=== PATIENT | male | born 1995 | race Caucasian/White ===

== ENCOUNTER 2022-07-17 15:05 | Inpatient (IN) | payer MEDICAID, OTHER ==
[~2022-07-17] VITALS: Ht 175.3 cm; Wt 83.5 kg
[2022-07-17] MEDS ORDERED: inSUlin (REGULAR) HUMAN 1 UNIT/0.01 ML (CHARGE PER UNIT) IV ONE (15:15)
[2022-07-17] MEDS ORDERED: NS IV 1000 ML 1,000 ML IV SCH ×3 (15:15→17:30)
[2022-07-17] MEDS ORDERED: fentaNYL INJ 100 MCG/2 ML AMP IVP ONE (15:30)
[2022-07-17 15:47] LABS: BASOPHILS # (AUTO) 0.1 10^3/uL (0.0-0.1); BASOPHILS % (AUTO) 0 % (0-10); EOSINOPHILS % (AUTO) 0 % (0-10); HEMATOCRIT 49 % (40-54); HEMOGLOBIN 15.8 g/dL (13.3-17.7); LYMPHOCYTES # (AUTO) 0.9 10^3/uL (1.0-4.0); LYMPHOCYTES % (AUTO) 3 % (12-44); MEAN CORPUSCULAR HEMOGLOBIN 31 pg (25-34); MEAN CORPUSCULAR HGB CONC 32 g/dL (32-36); MEAN CORPUSCULAR VOLUME 96 fL (80-99); MONOCYTES % (AUTO) 7 % (0-12); NEUTROPHILS # (AUTO) 25.7 10^3/uL (1.8-7.8); NEUTROPHILS % (AUTO) 84 % (42-75); PLATELET COUNT 450 10^3/uL (130-400)
[2022-07-17 15:53] LABS: ALBUMIN 4.3 GM/DL (3.2-4.5); BILIRUBIN,TOTAL 0.2 MG/DL (0.1-1.0); CALCIUM 9.6 MG/DL (8.5-10.1); CREATININE SERUM 2.33 MG/DL (0.60-1.30); POTASSIUM 5.3 MMOL/L (3.6-5.0); TOTAL PROTEIN 9.1 GM/DL (6.4-8.2); WHITE BLOOD COUNT 30.6 10^3/uL (4.3-11.0)
[2022-07-17 15:58] LABS: MAGNESIUM 2.1 MG/DL (1.6-2.4)
--- NOTE | 2022-07-17 16:05 | ED General ---
General Chief Complaint: Back Problems Stated Complaint: BACK PAIN Nursing Triage Note: PT TO ED BY EMS WITH C/O BACK PAIN AND N/V SINCE SUNDAY. PT HAS HX UNCRONTROLLED DM 2. PT REPORTS HE HAS NOT TAKEN ANYTHING FOR PAIN OR NAUSEA. Source of Information: Patient, EMS Exam Limitations: No Limitations History of Present Illness Date Seen by Provider: Jul 17, 2022 Time Seen by Provider: 15:06 Initial Comments This 27-year-old young man presents to the emergency room with 4 days of nausea and vomiting. He developed back pain with the vomiting. He arrives via EMS. He reports having a history of diabetes type 2. Although he states his diabetes is type II, he also reports he has had prior episodes of DKA and uses insulin. He has not taken his insulin for several days. He is a poor historian and states he does not remember when he last took insulin. He also denies having a primary care provider. He has not been seen at this facility in the past. Allergies and Home Medications Allergies Coded Allergies: No Known Drug Allergies (Unverified , 07/17/22) Patient Home Medication List Home Medication List Reviewed: Yes Review of Systems Review of Systems Constitutional: see HPI EENTM: other (Very dry mucous membranes) Respiratory: short of breath Cardiovascular: see HPI (Tachycardia) Gastrointestinal: see HPI Genitourinary: no symptoms reported Musculoskeletal: see HPI Skin: no symptoms reported Psychiatric/Neurological: No Symptoms Reported Hematologic/Lymphatic: No Symptoms Reported Past Pnpiqor-Xsqaxn-Uspeqk Hx Patient Social History Tobacco Use?: No Use of E-Cig and/or Vaping dev: No Substance use?: No Alcohol Use?: No Pt feels they are or have been: No Immunizations Up To Date Influenza Vaccine Up-to-Date: No; Not Current Past Medical History Surgery/Hospitalization HX: DM2, ASBERGERS Surgeries: No (None reported) Respiratory: No Cardiac: No Neurological: No Reproductive Disorders: No Genitourinary: No Gastrointestinal: No Musculoskeletal: No Endocrine: Yes Diabetes, Insulin dep HEENT: No Cancer: No Psychosocial: Yes (Asperger syndrome) Physical Exam-Suspected Sepsis Physical Exam Vital Signs Vital Signs - First Documented 07/17/22 15:07 Temp 35.2 Pulse 134 Resp 19 B/P (MAP) 112/76 (88) Pulse Ox 97 O2 Delivery Room Air Capillary Refill : Less Than 3 Seconds Blood Pressure Mean: 88 Height, Weight, BMI Height: '" Weight: lbs. oz. kg; 25.00 BMI Method: General Appearance: WD/WN, Moderate Distress HEENT: PERRL/EOMI, Other (Very dry mucous membranes) Neck: Normal Inspection Respiratory: Lungs Clear, Normal Breath Sounds, No Accessory Muscle Use Cardiovascular: No Edema, No Murmur, Tachycardia Gastrointestinal: Non Tender, Soft; No Distended Extremity: Normal Inspection, No Pedal Edema Neurologic/Psychiatric: Alert, Oriented x3, No Motor/Sensory Deficits, Normal Mood/Affect, Other (Poor historian) Skin: normal color, warm/dry Focused Exam Lactate Level 07/17/22 16:15: Lactic Acid Level 2.14*H 07/17/22 17:50: Lactic Acid Level 2.57*H 07/17/22 19:42: Lactic Acid Level 2.05*H Lactic Acid Level Laboratory Tests Test 07/17/22 17:50 07/17/22 19:42 Lactic Acid Level 2.57 MMOL/L (0.50-2.00) *H 2.05 MMOL/L (0.50-2.00) *H Progress/Results/Core Measures Suspected Sepsis SIRS Temperature: Pulse: 134 Respiratory Rate: 19 Laboratory Tests 07/17/22 15:09: White Blood Count 30.6*H 07/17/22 17:50: White Blood Count 28.2H Blood Pressure 112 /76 Mean: 88 07/17/22 16:15: Lactic Acid Level 2.14*H 07/17/22 17:50: Lactic Acid Level 2.57*H 07/17/22 19:42: Lactic Acid Level 2.05*H Laboratory Tests 07/17/22 15:09: Creatinine 2.33H, INR Comment 1.4, Platelet Count 450H, Total Bilirubin 0.2 07/17/22 17:50: Creatinine 1.99H, Platelet Count 388 07/17/22 19:42: Creatinine 1.88H Results/Orders Lab Results Laboratory Tests Test 07/17/22 15:09 07/17/22 15:13 07/17/22 15:17 07/17/22 16:15 Range/Units White Blood Count 30.6 *H 4.3-11.0 10^3/uL Red Blood Count 5.14 4.30-5.52 10^6/uL Hemoglobin 15.8 13.3-17.7 g/dL Hematocrit 49 40-54 % Mean Corpuscular Volume 96 80-99 fL Mean Corpuscular Hemoglobin 31 25-34 pg Mean Corpuscular Hemoglobin Concent 32 32-36 g/dL Red Cell Distribution Width 11.9 10.0-14.5 % Platelet Count 450 H 130-400 10^3/uL Mean Platelet Volume 9.0 9.0-12.2 fL Immature Granulocyte % (Auto) 6 % Neutrophils (%) (Auto) 84 H 42-75 % Lymphocytes (%) (Auto) 3 L 12-44 % Monocytes (%) (Auto) 7 0-12 % Eosinophils (%) (Auto) 0 0-10 % Basophils (%) (Auto) 0 0-10 % Neutrophils # (Auto) 25.7 H 1.8-7.8 10^3/uL Lymphocytes # (Auto) 0.9 L 1.0-4.0 10^3/uL Monocytes # (Auto) 2.0 H 0.0-1.0 10^3/uL Eosinophils # (Auto) 0.0 0.0-0.3 10^3/uL Basophils # (Auto) 0.1 0.0-0.1 10^3/uL Immature Granulocyte # (Auto) 1.9 H 0.0-0.1 10^3/uL Neutrophils % (Manual) 83 % Lymphocytes % (Manual) 4 % Monocytes % (Manual) 7 % Eosinophils % (Manual) 1 % Band Neutrophils 5 % Blood Morphology Comment NORMAL Prothrombin Time 17.5 H 12.2-14.7 SEC INR Comment 1.4 0.8-1.4 Activated Partial Thromboplast Time 29 24-35 SEC Sodium Level 134 L 135-145 MMOL/L Potassium Level 5.3 H 3.6-5.0 MMOL/L Chloride Level 100 98-107 MMOL/L Carbon Dioxide Level 5 *L 21-32 MMOL/L Anion Gap 29 H 5-14 MMOL/L Blood Urea Nitrogen 28 H 7-18 MG/DL Creatinine 2.33 H 0.60-1.30 MG/DL Estimat Glomerular Filtration Rate 38 BUN/Creatinine Ratio 12 Glucose Level 553 *H 70-105 MG/DL Calcium Level 9.6 8.5-10.1 MG/DL Corrected Calcium 9.4 8.5-10.1 MG/DL Magnesium Level 2.1 1.6-2.4 MG/DL Total Bilirubin 0.2 0.1-1.0 MG/DL Aspartate Amino Transf (AST/SGOT) 8 5-34 U/L Alanine Aminotransferase (ALT/SGPT) 13 0-55 U/L Alkaline Phosphatase 133 40-136 U/L C-Reactive Protein High Sensitivity 17.43 H 0.00-0.50 MG/DL Total Protein 9.1 H 6.4-8.2 GM/DL Albumin 4.3 3.2-4.5 GM/DL Beta-Hydroxybutyrate (Chem panel) 12.14 H 0.00-0.27 MMOL/L Procalcitonin 0.33 H <0.10 NG/ML Serum Alcohol < 10 <10 MG/DL Glucometer 532 *H 70-110 MG/DL Influenza Type A (RT-PCR) Not Detected Not Detecte Influenza Type B (RT-PCR) Not Detected Not Detecte SARS-CoV-2 RNA (RT-PCR) Not Detected Not Detecte Lactic Acid Level 2.14 *H 0.50-2.00 MMOL/L Test 07/17/22 17:48 07/17/22 17:50 07/17/22 18:46 07/17/22 19:00 Range/Units Glucometer 405 *H 359 H 70-110 MG/DL White Blood Count 28.2 H 4.3-11.0 10^3/uL Red Blood Count 4.94 4.30-5.52 10^6/uL Hemoglobin 15.4 13.3-17.7 g/dL Hematocrit 47 40-54 % Mean Corpuscular Volume 95 80-99 fL Mean Corpuscular Hemoglobin 31 25-34 pg Mean Corpuscular Hemoglobin Concent 33 32-36 g/dL Red Cell Distribution Width 12.0 10.0-14.5 % Platelet Count 388 130-400 10^3/uL Mean Platelet Volume 8.9 L 9.0-12.2 fL Sodium Level 138 135-145 MMOL/L Potassium Level 4.9 3.6-5.0 MMOL/L Chloride Level 107 98-107 MMOL/L Carbon Dioxide Level < 5 *L 21-32 MMOL/L Anion Gap 26 H 5-14 MMOL/L Blood Urea Nitrogen 27 H 7-18 MG/DL Creatinine 1.99 H 0.60-1.30 MG/DL Estimat Glomerular Filtration Rate 46 BUN/Creatinine Ratio 14 Glucose Level 444 *H 70-105 MG/DL Lactic Acid Level 2.57 *H 0.50-2.00 MMOL/L Calcium Level 8.7 8.5-10.1 MG/DL Beta-Hydroxybutyrate (Chem panel) 9.81 H 0.00-0.27 MMOL/L Urine Color YELLOW Urine Clarity CLEAR Urine pH 5.5 5-9 Urine Specific [place] >=1.030 1.016-1.022 Urine Protein 1+ H NEGATIVE Urine Glucose (UA) 3+ H NEGATIVE Urine Ketones 3+ H NEGATIVE Urine Nitrite NEGATIVE NEGATIVE Urine Bilirubin NEGATIVE NEGATIVE Urine Urobilinogen 0.2 < = 1.0 MG/DL Urine Leukocyte Esterase NEGATIVE NEGATIVE Urine RBC (Auto) 1+ H NEGATIVE Urine RBC NONE /HPF Urine WBC NONE /HPF Urine Squamous Epithelial Cells NONE /HPF Urine Crystals NONE /LPF Urine Bacteria TRACE /HPF Urine Casts PRESENT /LPF Urine Hyaline Casts 0-2 H /LPF Urine Mucus NEGATIVE /LPF Urine Culture Indicated NO Test 07/17/22 19:42 07/17/22 20:00 07/17/22 21:04 Range/Units Sodium Level 136 135-145 MMOL/L Potassium Level 4.7 3.6-5.0 MMOL/L Chloride Level 108 H 98-107 MMOL/L Carbon Dioxide Level 5 *L 21-32 MMOL/L Anion Gap 23 H 5-14 MMOL/L Blood Urea Nitrogen 25 H 7-18 MG/DL Creatinine 1.88 H 0.60-1.30 MG/DL Estimat Glomerular Filtration Rate 49 BUN/Creatinine Ratio 13 Glucose Level 443 *H 70-105 MG/DL Lactic Acid Level 2.05 *H 0.50-2.00 MMOL/L Calcium Level 8.5 8.5-10.1 MG/DL Glucometer 388 H 303 H 70-110 MG/DL My Orders Orders - FREDERICK VANN MD Cbc With Automated Diff (07/17/22 15:10) Comprehensive Metabolic Panel (07/17/22 15:10) Ua Culture If Indicated (07/17/22 15:10) Ed Iv/Invasive Line Start (07/17/22 15:10) Ns Iv 1000 Ml (Sodium Chloride 0.9%) (07/17/22 15:15) Alcohol (07/17/22 15:15) Hs C Reactive Protein (07/17/22 15:15) Drug Screen Stat (Urine) (07/17/22 15:15) Magnesium (07/17/22 15:15) Insulin (Regular) Human (Novolin R (Per (07/17/22 15:15) Covid 19 Inhouse Test (07/17/22 15:15) Influenza A And B By Pcr (07/17/22 15:15) Fentanyl Inj (Sublimaze Injection) (07/17/22 15:30) Manual Differential (07/17/22 15:09) Blood Culture (07/17/22 15:57) Sputum Culture (07/17/22 15:57) Protime With Inr (07/17/22 15:57) Partial Thromboplastin Time (07/17/22 15:57) Chest 1 View, Ap/Pa Only (07/17/22 15:57) Vital Signs Adult Sepsis Patie Q15M (07/17/22 15:57) O2 (07/17/22 15:57) Remove Rings In Anticipation O (07/17/22 15:57) Lactic Acid Analyzer (07/17/22 15:57) Ns Iv 1000 Ml (Sodium Chloride 0.9%) (07/17/22 16:00) Procalcitonin (Pct) (07/17/22 15:59) Beta Hydroxybutyrate (07/17/22 16:18) Ceftriaxone 1 Gm Pre-Mix (Rocephin 1 Gm (07/17/22 16:22) Medications Given in ED Current Medications Medications Dose Ordered Sig/Bianca Route Start Time Stop Time Status Last Admin Dose Admin Fentanyl Citrate 50 mcg ONCE ONCE IVP 07/17/22 15:30 07/17/22 15:31 DC 07/17/22 16:06 50 MCG Insulin Human Regular 5 unit ONCE ONCE IV 07/17/22 15:15 07/17/22 15:19 DC 07/17/22 16:05 5 UNIT Vital Signs/I&O 07/17/22 07/17/22 07/17/22 07/17/22 15:07 17:15 17:18 17:20 Temp 35.2 Pulse 134 135 137 Resp 19 16 B/P (MAP) 112/76 (88) 133/82 (99) Pulse Ox 97 100 99 O2 Delivery Room Air Room Air Room Air 07/17/22 07/17/22 07/17/22 07/17/22 17:30 17:40 17:45 18:00 Temp 36.6 Pulse 137 133 133 Resp 37 12 21 B/P (MAP) 120/72 (88) 129/92 (104) Pulse Ox 99 100 99 O2 Delivery Room Air Room Air Room Air Capillary Refill : Less Than 3 Seconds Blood Pressure Mean: 88 Progress Note : Progress Note Patient was treated with 3 L of IV normal saline as well as insulin 5 units IV. Labs suggested DKA. He also demonstrated a left lower lobe pneumonia on x-ray. Antibiotic therapy with Rocephin was started after blood cultures were obtained. Diagnostic Imaging Diagonstic Imaging: Xray Plain Films/CT/US/NM/MRI: chest Comments Chest x-ray viewed by me and report reviewed. See report below NAME: JIMENEZ HARMON [facility] REC#: [id number] PT STATUS: REG ER : 1995 PHYSICIAN: FREDERICK VANN MD ADMIT DATE: 07/17/22/ER Draft Date of Exam:07/17/22 CHEST 1 VIEW, AP/PA ONLY INDICATION: Diabetic patient; pain, nausea, and vomiting. COMPARISON: No priors. FINDINGS: There is airspace opacity in the left base strongly suggestive of pneumonia in the left lower lobe. Right lung and upper lobes are clear. No failure, effusion, or pneumothorax. IMPRESSION: Left lower lobe pneumonia. Dictated on workstation # [id number] Dict: 07/17/22 1623 Trans: 07/17/22 1626 [id number] Interpreted by: LIBAN BAIRES Departure Communication (Admissions) Time/Spoke to Admitting Phy: 16:15 Dr. Rangel Impression Primary Impression: DKA (diabetic ketoacidosis) Qualified Codes: E13.10 - Other specified diabetes mellitus with ketoacidosis without coma Additional Impressions: Left lower lobe pneumonia Qualified Codes: J18.9 - Pneumonia, unspecified organism Sepsis Qualified Codes: A41.9 - Sepsis, unspecified organism Disposition: ADMITTED INPATIENT Condition: Improved Admissions Decision to Admit Reason: Admit from ER (General) Decision to Admit/Date: Jul 17, 2022 Time/Decision to Admit Time: 16:15 FREDERICK VANN MD Jul 17, 2022 16:05
[2022-07-17] MEDS ORDERED: cefTRIAXone 1 GM PRE-MIX 50 ML IV STA (16:22)
--- NOTE | 2022-07-17 16:27 | Diagnostic Imaging Report ---
INDICATION: Diabetic patient; pain, nausea, and vomiting. COMPARISON: No priors. FINDINGS: There is airspace opacity in the left base strongly suggestive of pneumonia in the left lower lobe. Right lung and upper lobes are clear. No failure, effusion, or pneumothorax. IMPRESSION: Left lower lobe pneumonia. Dictated by: Dictated on workstation # [id number]
[2022-07-17 16:38] LABS: BAND NEUTROPHILS 5 %; EOSINOPHILS % (MANUAL) 1 %; LYMPHOCYTES % (MANUAL) 4 %; MONOCYTES % (MANUAL) 7 %; NEUTROPHILS % (MANUAL) 83 %; RBC MORPH NORMAL
[2022-07-17 16:40] LABS: INR 1.4 (0.8-1.4); PROTHROMBIN TIME PATIENT 17.5 SEC (12.2-14.7)
[2022-07-17] MEDS ORDERED: fentaNYL INJ 100 MCG/2 ML AMP IV PRN (17:30)
[2022-07-17] MEDS ORDERED: ONDANSETRON 4 MG/2 ML (SDV) Z0FRAN IV PRN (17:30)
[2022-07-17] MEDS ORDERED: POTASSIUM CL 10MEQ/50ML IVPB 50 ML IV SCH (17:30)
[2022-07-17] MEDS ORDERED: EPINEPHrine 1 MG INJECTION 4 MG in NS (IVPB) 248 ML IV SCH (17:30)
[2022-07-17] MEDS: PANTOPRAZOLE 40 MG (PROTONIX) VIAL IV SCH (17:39)
[2022-07-17] MEDS: AZITHROMYCIN 500 MG/NS 250 ML IVPB IV SCH ×2 (17:39)
[2022-07-17] MEDS: NOREPINEPHRINE 8 MG/250 ML 250 ML IV SCH (17:46)
[2022-07-17] MEDS: VASOPRESSIN INJECTION 20 UNIT in NS (IVPB) 100 ML IV SCH (17:46)
[2022-07-17] MEDS: 1/2 NS IV SOLUTION 1,000 ML IV SCH ×2 (17:54→22:10)
[2022-07-17 17:57] LABS: HEMATOCRIT 47 % (40-54); HEMOGLOBIN 15.4 g/dL (13.3-17.7); MEAN CORPUSCULAR HEMOGLOBIN 31 pg (25-34); MEAN CORPUSCULAR HGB CONC 33 g/dL (32-36); MEAN CORPUSCULAR VOLUME 95 fL (80-99); MEAN PLATELET VOLUME 8.9 fL (9.0-12.2); PLATELET COUNT 388 10^3/uL (130-400); WHITE BLOOD COUNT 28.2 10^3/uL (4.3-11.0)
[2022-07-17] MEDS: POTASSIUM CL 10MEQ/50ML IVPB 50 ML IV SCH (18:00)
[2022-07-17 18:18] LABS: BUN/CREATININE RATIO 14; CALCIUM 8.7 MG/DL (8.5-10.1); CHLORIDE 107 MMOL/L (98-107); CREATININE SERUM 1.99 MG/DL (0.60-1.30); GFR ESTIMATED 46; POTASSIUM 4.9 MMOL/L (3.6-5.0); SODIUM 138 MMOL/L (135-145)
[2022-07-17 18:20] LABS: CARBON DIOXIDE < 5 MMOL/L (21-32); GLUCOSE 444 MG/DL (70-105)
[2022-07-17] MEDS ORDERED: FLU QUADRIvalent (6 months+) 60 mcg/0.5 ml 2022-23 (Fluzone) IM ONE (18:45)
[2022-07-17 19:10] LABS: BILIRUBIN,URINE NEGATIVE (NEGATIVE); CLARITY,URINE CLEAR; COLOR,URINE YELLOW; GLUCOSE, URINE (UA) 3+ (NEGATIVE); KETONES,URINE 3+ (NEGATIVE); LEUKOCYTE ESTERASE ,URINE NEGATIVE (NEGATIVE); NITRITE,URINE NEGATIVE (NEGATIVE); PH,URINE 5.5 (5-9); PROTEIN,URINE 1+ (NEGATIVE)
[2022-07-17 19:24] LABS: BACTERIA,URINE TRACE /HPF; HYALINE CASTS, URINE 0-2 /LPF
[2022-07-17 20:11] LABS: CALCIUM 8.5 MG/DL (8.5-10.1); CREATININE SERUM 1.88 MG/DL (0.60-1.30); POTASSIUM 4.7 MMOL/L (3.6-5.0)
[2022-07-18] MEDS: D5 1/2 NS 1000 ML IV SOLUTION 1,000 ML IV SCH ×3 (00:23→09:29)
[2022-07-18] MEDS: 1/2 NS IV SOLUTION 1,000 ML IV SCH ×6 (00:43→21:16)
[2022-07-18] MEDS: VASOPRESSIN INJECTION 20 UNIT in NS (IVPB) 100 ML IV SCH ×2 (00:44→12:55)
[2022-07-18 01:43] LABS: CALCIUM 8.9 MG/DL (8.5-10.1); CREATININE SERUM 1.6 MG/DL (0.60-1.30); POTASSIUM 3.5 MMOL/L (3.6-5.0)
[2022-07-18] MEDS: POTASSIUM CL 10MEQ/50ML IVPB 50 ML IV SCH ×6 (04:16→12:55)
[2022-07-18 05:52] LABS: BASOPHILS # (AUTO) 0.1 10^3/uL (0.0-0.1); BASOPHILS % (AUTO) 0 % (0-10); EOSINOPHILS % (AUTO) 0 % (0-10); HEMATOCRIT 40 % (40-54); HEMOGLOBIN 13.5 g/dL (13.3-17.7); LYMPHOCYTES # (AUTO) 1.1 10^3/uL (1.0-4.0); LYMPHOCYTES % (AUTO) 5 % (12-44); MEAN CORPUSCULAR HEMOGLOBIN 31 pg (25-34); MEAN CORPUSCULAR HGB CONC 34 g/dL (32-36); MEAN CORPUSCULAR VOLUME 89 fL (80-99); MEAN PLATELET VOLUME 8.8 fL (9.0-12.2); MONOCYTES # (AUTO) 1.8 10^3/uL (0.0-1.0); MONOCYTES % (AUTO) 8 % (0-12); NEUTROPHILS # (AUTO) 18.1 10^3/uL (1.8-7.8); NEUTROPHILS % (AUTO) 83 % (42-75); PLATELET COUNT 326 10^3/uL (130-400); WHITE BLOOD COUNT 21.9 10^3/uL (4.3-11.0)
[2022-07-18 06:03] LABS: CALCIUM 8.8 MG/DL (8.5-10.1); CREATININE SERUM 1.36 MG/DL (0.60-1.30); POTASSIUM 3.1 MMOL/L (3.6-5.0)
[2022-07-18 08:44] LABS: AMPHETAMINE SCREEN, URINE NEGATIVE (NEGATIVE); BARBITURATE SCREEN URINE NEGATIVE (NEGATIVE); BENZODIAZEPINES SCREEN URINE NEGATIVE (NEGATIVE); CANNABINOID SCREEN, URINE NEGATIVE (NEGATIVE); COCAINE SCREEN URINE NEGATIVE (NEGATIVE); METHADONE STAT NEGATIVE (NEGATIVE); OPIATE SCREEN URINE NEGATIVE (NEGATIVE); OXYCODONE STAT NEGATIVE (NEGATIVE); PROPOXYPHENE STAT NEGATIVE (NEGATIVE); TRICYCLIC ANTIDEPRESSANTS SCRE NEGATIVE (NEGATIVE)
--- NOTE | 2022-07-18 09:04 | History & Physical-Hospitalist ---
History of Present Illness HPI/Chief Complaint Pt is a 27yoCCM with a PMH of IDDM (presumably Type I) who presented to the ER due to nausea and vomiting. He was diagnosed with DM 5-10 years ago and is unsure what type he has but presumably is a Type I diabetic. His last episode of DKA was 3 years ago. He was seeing a free clinic [place] but recently moved to [place] and was unable to get insulin there anymore. He has been out of insulin for months because of this. He is unsure of his last a1c. He was taking between 20-30 units of insulin throughout the day when he had it. He was found to be in DKA and admitted to the ICU on an insulin gtt. CXR was also concerning for PNA and he was started on abx. This morning he reports feeling much better and is asking about how to get on [place] medicaid. Source: patient Date Seen 07/18/22 Time Seen by a Provider: 09:01 Attending Physician No,Local Physician PCP Admitting Physician: Celeste Rangel MD Attending Physician: Celeste Rangel MD Referring Physician Date of Admission Jul 17, 2022 at 16:15 Home Medications & Allergies Home Medications Reviewed patient Home Medication Reconciliation performed by pharmacy medication reconciliations heavy line technician and/or nursing. Patients Allergies have been reviewed. Allergies Allergies Coded Allergies No Known Drug Allergies (Vqnqwpnqvy25/28/22) Past Yffytmk-Vzatoc-Szspnj Hx Patient Social History Marrital Status: single Tobacco Use?: No Smoking Status: Never a Smoker Use of E-Cig and/or Vaping dev: No Substance use?: No Alcohol Use?: No Pt feels they are or have been: No Current Status Advance Directives: No Communicates: Verbally Primary Language: Mozambican Preferred Spoken Language: Mozambican Is interpretation needed?: No Sensory deficits: Vision impairment Implanted or Applied Medical D: None Past Medical History Diabetes, Insulin dep Family Medical History Reviewed Nursing Family Hx Diabetes Review of Systems Constitutional: No chills, No fever; malaise EENTM: no symptoms reported Respiratory: cough Cardiovascular: no symptoms reported Gastrointestinal: nausea, vomiting Genitourinary: no symptoms reported Musculoskeletal: back pain Skin: no symptoms reported Psychiatric/Neurological: No Symptoms Reported Physical Exam Physical Exam Vital Signs Vital Signs - First Documented 07/17/22 07/17/22 15:07 19:38 Temp 35.2 Pulse 134 Resp 19 B/P (MAP) 112/76 (88) Pulse Ox 97 O2 Delivery Room Air O2 Flow Rate 10.00 Capillary Refill : Less Than 3 Seconds Height, Weight, BMI Height: '" Weight: lbs. oz. kg; 26.06 BMI Method: General Appearance: No Apparent Distress, WD/WN HEENT: PERRL/EOMI, Moist Mucous Membranes Neck: Normal Inspection, Supple Respiratory: Lungs Clear, No Accessory Muscle Use, No Respiratory Distress Cardiovascular: Regular Rate, Rhythm, No JVD, No Murmur Gastrointestinal: Normal Bowel Sounds, Non Tender, Soft Extremity: Normal Capillary Refill, No Calf Tenderness, No Pedal Edema Neurologic/Psychiatric: Alert, Oriented x3, Normal Mood/Affect Skin: Normal Color, Warm/Dry Results Results/Procedures Labs Laboratory Tests 07/17/22 15:09 07/17/22 17:50 07/17/22 19:42 07/18/22 01:10 07/18/22 05:05 07/18/22 09:18 Patient resulted labs reviewed. Imaging: Reviewed Imaging Report Imaging [facility], [place], [place] NAME: JIMENEZ HARMON [facility] REC#: [id number] PT STATUS: ADM IN : 1995 PHYSICIAN: FREDERICK VANN MD ADMIT DATE: 07/17/22/ICU Signed Date of Exam:07/17/22 CHEST 1 VIEW, AP/PA ONLY INDICATION: Diabetic patient; pain, nausea, and vomiting. COMPARISON: No priors. FINDINGS: There is airspace opacity in the left base strongly suggestive of pneumonia in the left lower lobe. Right lung and upper lobes are clear. No failure, effusion, or pneumothorax. IMPRESSION: Left lower lobe pneumonia. Dictated by: Dictated on workstation # [id number] Dict: 07/17/22 1623 Trans: 07/18/22804 [id number] Interpreted by: LIBAN BAIRES Electronically signed by: LIBAN BAIRES 07/18/22 0805 Assessment/Plan Admission Diagnosis DKA Admission Status: Inpatient Order (span 2 midnights) Reason for Inpatient Admission: see below Assessment and Plan DKA Hypokalemia severe acidosis with undetectable bicarb on arrival Insulin gtt Gap now closed and BS improved Attempt to switch to bolus insulin A1c pending BMP this afternoon SW consulted for assistance with medicaid application Replace potassium per protocol Sepsis due to Pneumonia Continue on IV abx Await cultures Doing better, WBC trending down DVT ppx: Lovenox Diagnosis/Problems Diagnosis/Problems (1) DKA (diabetic ketoacidosis) Status: Acute Qualifiers: Diabetes mellitus type: other specified (including ALEX) Diabetes mellitus complication detail: without coma Qualified Codes: E13.10 - Other specified diabetes mellitus with ketoacidosis without coma (2) Sepsis Status: Acute Qualifiers: Sepsis type: sepsis due to unspecified organism Sepsis acute organ dysfunction status: unspecified Qualified Codes: A41.9 - Sepsis, unspecified organism (3) Left lower lobe pneumonia Status: Acute Qualifiers: Pneumonia type: due to unspecified organism Qualified Codes: J18.9 - Pneumonia, unspecified organism CELESTE RANGEL MD Jul 18, 2022 09:04
[2022-07-18] MEDS: PANTOPRAZOLE 40 MG (PROTONIX) VIAL IV SCH (09:28)
[2022-07-18] MEDS: NOREPINEPHRINE 8 MG/250 ML 250 ML IV SCH (09:29)
[2022-07-18 09:43] LABS: CALCIUM 8.8 MG/DL (8.5-10.1); CREATININE SERUM 1.17 MG/DL (0.60-1.30)
[2022-07-18] MEDS: inSUlin ASPART (NovoLOG) 1 UNIT/0.01 ML (CHARGE PER UNIT) SC SCH ×3 (11:20→21:08)
[2022-07-18] MEDS: cefTRIAXone 1 GM PRE-MIX 50 ML IV SCH (12:55)
[2022-07-18] MEDS: ENOXAPARIN 40 MG/0.4 ML (LOVENOX) SYR SQ SCH (12:55)
[2022-07-18] MEDS: AZITHROMYCIN 500 MG/NS 250 ML IVPB IV SCH ×2 (17:51)
[2022-07-18 20:28] LABS: CALCIUM 8.9 MG/DL (8.5-10.1)
[2022-07-18 20:32] LABS: CREATININE SERUM 1.12 MG/DL (0.60-1.30)
[2022-07-18 20:59] LABS: POTASSIUM 3.4 MMOL/L (3.6-5.0)
[2022-07-19] MEDS: 1/2 NS IV SOLUTION 1,000 ML IV SCH ×2 (01:28→06:13)
[2022-07-19] MEDS: VASOPRESSIN INJECTION 20 UNIT in NS (IVPB) 100 ML IV SCH ×2 (03:16→15:15)
[2022-07-19] MEDS: NOREPINEPHRINE 8 MG/250 ML 250 ML IV SCH (03:16)
[2022-07-19 05:33] LABS: BASOPHILS # (AUTO) 0.1 10^3/uL (0.0-0.1); BASOPHILS % (AUTO) 0 % (0-10); EOSINOPHILS % (AUTO) 0 % (0-10); HEMATOCRIT 39 % (40-54); HEMOGLOBIN 13.5 g/dL (13.3-17.7); LYMPHOCYTES # (AUTO) 2.3 10^3/uL (1.0-4.0); LYMPHOCYTES % (AUTO) 19 % (12-44); MEAN CORPUSCULAR HEMOGLOBIN 31 pg (25-34); MEAN CORPUSCULAR HGB CONC 35 g/dL (32-36); MEAN CORPUSCULAR VOLUME 88 fL (80-99); MEAN PLATELET VOLUME 8.7 fL (9.0-12.2); MONOCYTES # (AUTO) 0.7 10^3/uL (0.0-1.0); MONOCYTES % (AUTO) 6 % (0-12); NEUTROPHILS # (AUTO) 9.1 10^3/uL (1.8-7.8); NEUTROPHILS % (AUTO) 74 % (42-75); PLATELET COUNT 291 10^3/uL (130-400); WHITE BLOOD COUNT 12.3 10^3/uL (4.3-11.0)
[2022-07-19 05:49] LABS: CALCIUM 8.8 MG/DL (8.5-10.1); CREATININE SERUM 0.86 MG/DL (0.60-1.30); POTASSIUM 3.5 MMOL/L (3.6-5.0)
[2022-07-19] MEDS: inSUlin ASPART (NovoLOG) 1 UNIT/0.01 ML (CHARGE PER UNIT) SC SCH ×2 (06:22→11:00)
[2022-07-19] MEDS: PANTOPRAZOLE 40 MG (PROTONIX) VIAL IV SCH (07:57)
--- NOTE | 2022-07-19 08:31 | Discharge Summary ---
Diagnosis/Chief Complaint Date of Admission Jul 17, 2022 at 16:15 Date of Discharge Admission Diagnosis DKA Primary Care No,Local Physician Discharge Diagnosis (1) DKA (diabetic ketoacidosis) Status: Acute (2) Sepsis Status: Acute (3) Left lower lobe pneumonia Status: Acute Discharge Summary Discharge Physical Exam Allergies: Coded Allergies: No Known Drug Allergies (Unverified , 07/17/22) Vitals & I&Os Vital Signs Date Time Temp Pulse Resp B/P (MAP) Pulse Ox O2 Delivery O2 Flow Rate FiO2 07/19/22 08:03 36.7 07/19/22 06:00 80 17 107/63 (78) 98 Room Air 07/17/22 19:38 10.00 Hospital Course Labs (last 24 hrs) Laboratory Tests 07/18/22 08:57: Glucometer 180H 07/18/22 09:18: Sodium Level 137, Potassium Level 3.0L, Chloride Level 113H, Carbon Dioxide Level 15L, Anion Gap 9, Blood Urea Nitrogen 12, Creatinine 1.17, Estimat Glomerular Filtration Rate 87, BUN/Creatinine Ratio 10, Glucose Level 179H, Calcium Level 8.8 07/18/22 10:04: Glucometer 190H 07/18/22 11:11: Glucometer 131H 07/18/22 13:04: Glucometer 218H 07/18/22 16:42: Glucometer 221H 07/18/22 20:06: Sodium Level 134L, Potassium Level 3.4L, Chloride Level 108H, Carbon Dioxide Level 14L, Anion Gap 12, Blood Urea Nitrogen 11, Creatinine 1.12, Estimat Glomerular Filtration Rate 92, BUN/Creatinine Ratio 10, Glucose Level 307H, Calcium Level 8.9 07/18/22 20:47: Glucometer 250H 07/19/22 05:05: White Blood Count 12.3H, Red Blood Count 4.37, Hemoglobin 13.5, Hematocrit 39L, Mean Corpuscular Volume 88, Mean Corpuscular Hemoglobin 31, Mean Corpuscular Hemoglobin Concent 35, Red Cell Distribution Width 12.1, Platelet Count 291, Mean Platelet Volume 8.7L, Immature Granulocyte % (Auto) 2, Neutrophils (%) (Auto) 74, Lymphocytes (%) (Auto) 19, Monocytes (%) (Auto) 6, Eosinophils (%) (Auto) 0, Basophils (%) (Auto) 0, Neutrophils # (Auto) 9.1H, Lymphocytes # (Auto) 2.3, Monocytes # (Auto) 0.7, Eosinophils # (Auto) 0.0, Basophils # (Auto) 0.1, Immature Granulocyte # (Auto) 0.2H, Sodium Level 139, Potassium Level 3.5L, Chloride Level 109H, Carbon Dioxide Level 15L, Anion Gap 15H, Blood Urea Nitrogen 11, Creatinine 0.86, Estimat Glomerular Filtration Rate 121, BUN/Creatinine Ratio 13, Glucose Level 262H, Calcium Level 8.8 Microbiology 07/17/22 MRSA Screen - Final, Complete MRSA not isolated 07/17/22 Blood Culture - Preliminary, Resulted No growth Patient resulted labs reviewed. Pending Labs Laboratory Tests 07/19/22 05:05: White Blood Count 12.3, Red Blood Count 4.37, Hemoglobin 13.5, Hematocrit 39, Mean Corpuscular Volume 88, Mean Corpuscular Hemoglobin 31, Mean Corpuscular Hemoglobin Concent 35, Red Cell Distribution Width 12.1, Platelet Count 291, Mean Platelet Volume 8.7, Immature Granulocyte % (Auto) 2, Neutrophils (%) (Auto) 74, Lymphocytes (%) (Auto) 19, Monocytes (%) (Auto) 6, Eosinophils (%) (Auto) 0, Basophils (%) (Auto) 0, Neutrophils # (Auto) 9.1, Lymphocytes # (Auto) 2.3, Monocytes # (Auto) 0.7, Eosinophils # (Auto) 0.0, Basophils # (Auto) 0.1, Immature Granulocyte # (Auto) 0.2, Sodium Level 139, Potassium Level 3.5, Chloride Level 109, Carbon Dioxide Level 15, Anion Gap 15, Blood Urea Nitrogen 11, Creatinine 0.86, Estimat Glomerular Filtration Rate 121, BUN/Creatinine Ratio 13, Glucose Level 262, Calcium Level 8.8 Imaging: Reviewed Imaging Report Discharge Home Medications: Active Scripts Active No Active Prescriptions or Reported Medications Instructions to patient/family Please see electronic discharge instructions given to patient. Problem Qualifiers (1) DKA (diabetic ketoacidosis): Diabetes mellitus type: other specified (including ALEX) Diabetes mellitus complication detail: without coma Qualified Codes: E13.10 - Other specified diabetes mellitus with ketoacidosis without coma (2) Sepsis: Sepsis type: sepsis due to unspecified organism Sepsis acute organ dysfunction status: unspecified Qualified Codes: A41.9 - Sepsis, unspecified organism (3) Left lower lobe pneumonia: Pneumonia type: due to unspecified organism Qualified Codes: J18.9 - Pneumonia, unspecified organism CELESTE MILLIGAN MD Jul 19, 2022 08:31
[2022-07-19] MEDS: ENOXAPARIN 40 MG/0.4 ML (LOVENOX) SYR SQ SCH (11:03)
[2022-07-19] MEDS ORDERED: INSU100I29 SQ (11:49)
[2022-07-19] MEDS ORDERED: INSU100I14 SQ (11:49)
[2022-07-19] MEDS ORDERED: CEPH500T PO (11:49)
[2022-07-19] MEDS ORDERED: AZIT250T12 PO (11:49)
--- NOTE | 2022-07-19 11:51 | Discharge Inst-Simple/Standard ---
Discharge Inst-Standard Discharge Medications New, Converted or Re-Newed RX: Transmitted to Pharmacy Patient Instructions/Follow Up Plan of Care/Instructions/FU: Please continue to take your medications as written. Please follow up with your primary care doctor to follow up this hospital stay. Activity as Tolerated: Yes Discharge Diet: ADA Diet Return to The Hospital For: Chest pain, elevated blood sugars, abdominal pain, nausea, vomiting, shortness of breath, fever, weakness, if you feel you are getting worse. CELESTE MILLIGAN MD Jul 19, 2022 11:51 am
[2022-07-19] MEDS: cefTRIAXone 1 GM PRE-MIX 50 ML IV SCH (15:07)
[2022-07-19 15:15] VITALS: BP 132/83
== END 2022-07-19 15:44 | disposition home or self-care (01) | DRG 871 ==
LOC: ER 15:06 → ICU 16:15
PROVIDERS: ADMIT Family Medicine; ATTEND Family Medicine
DX: A41.9 Sepsis, unspecified organism (principal); E10.10 Type 1 diabetes mellitus with ketoacidosis without coma; J18.9 Pneumonia, unspecified organism; F84.5 Asperger's syndrome; E87.6 Hypokalemia; H54.7 Unspecified visual loss; Z79.4 Long term (current) use of insulin; Z20.822 Contact with and (suspected) exposure to COVID-19
CPT/HCPCS: 36415; 71045; 80048; 80053; 80306; 80320; 81000; 82010; 82947; 83036; 83605; 83735; 84145; 85007; 85025; 85027; 85610; 85730; 86141; 87040; 87081; 87636

== ENCOUNTER 2022-08-18 22:10 | Emergency (ER) | payer MEDICAID ==
[~2022-08-18] VITALS: Ht 175 cm; Wt 83.5 kg
[~2022-08-18 22:10] MED LIST: AZIT250T12 PO; CEPH500T PO; INSU100I14 SQ; INSU100I29 SQ
--- NOTE | 2022-08-18 22:26 | ED GI ---
General Chief Complaint: Abdominal/GI Problems Stated Complaint: VOMITING History of Present Illness Date Seen by Provider: Aug 18, 2022 Time Seen by Provider: 20:12 Initial Comments 27 year old male reports vomiting multiple times today. Denies fever or cough. He reports being Type 2 Diabetic but has been on insulin longstanding. He was here in Jun 2022, for 4 days of vomiting with DKA. His highest blood sugar was 330, he administered 5 units of insulin but can not recall time. He has no PCP, was last treated in [place]. Not compliant with his insulin or getting meds refilled. He was referred to [facility] after D/C in Jun. Reports being around family members that now have bronchitis, no known COVID or Flu exposure. Blood sugar per EMS 344, Given Zofran 4 mg IV per EMS. Patient reports improvement in Nausea, requesting water or ice chips. No po intake at this time. Timing/Duration: 12 Hours Severity/Quality: Mild Location: Generalized Abdomen Radiation: No Radiation Associated Symptoms: No Back Pain, No Chest Pain, No Fever/Chills, No Headache, No Heartburn; Nausea/Vomiting; No Shortness of Air, No Syncope, No Weakness (BARBARA ANAYA) Allergies and Home Medications Allergies Coded Allergies: No Known Drug Allergies (Unverified , 07/17/22) Patient Home Medication List Home Medication List Reviewed: Yes (BARBARA ANAYA) Insulin Aspart (Novolog Flexpen) 100 Unit/Ml (3 Ml) Solution, 5 UNITS SQ AC Prescribed by: CELESTE MILLIGAN on 07/19/221148 Insulin Detemir (Levemir Flextouch) 100 Unit/Ml (3 Ml) Insuln.pen, 20 UNIT SQ HS Prescribed by: CELESTE MILLIGAN on 07/19/22 114 Discontinued Medications Azithromycin (Azithromycin) 250 Mg Tablet, 250 MG PO DAILY Discontinued Reason: No Longer Taking Prescribed by: CELESTE MILLIGAN on 07/19/22 114 Last Action: Discontinued Cephalexin (Cephalexin) 500 Mg Tablet, 500 MG PO BID Discontinued Reason: No Longer Taking Prescribed by: CELESTE MILLIGAN on 07/19/221148 Last Action: Discontinued Review of Systems Review of Systems Constitutional: no symptoms reported, see HPI Gastrointestinal: See HPI, Abdominal Pain; Denies Diarrhea; Nausea, Poor Appetite, Poor Fluid Intake, Vomiting (BARBARA ANAYA) All Other Systems Reviewed Negative Unless Noted: Yes (BARBARA ANAYA) Past Vskzjxy-Rhpnhq-Xogtzr Hx Past Medical History Surgery/Hospitalization HX: DM, ASBERGERS Surgeries: No (None reported) Respiratory: No Cardiac: No Neurological: No Reproductive Disorders: No Genitourinary: No Gastrointestinal: No Musculoskeletal: No Endocrine: Yes Diabetes, Insulin dep HEENT: No Cancer: No Psychosocial: Yes (Asperger syndrome) (BARBARA ANAYA) Family Medical History Reviewed Nursing Family Hx (BARBARA ANAYA) Diabetes (BARBARA ANAYA) Physical Exam Vital Signs Vital Signs - First Documented 08/18/22 22:13 Temp 36.7 Pulse 132 Resp 20 B/P (MAP) 106/77 (87) Pulse Ox 100 O2 Delivery Room Air (BRAD BENSON MD) Vital Signs Capillary Refill : (BARBARA ANAYA) Height/Weight/BMI Height: '" Weight: lbs. oz. kg; 26.06 BMI Method: General Appearance: WD/WN, no apparent distress Neck: non-tender, full range of motion, supple, normal inspection Respiratory: chest non-tender, lungs clear, normal breath sounds Cardiovascular: normal peripheral pulses, regular rate, rhythm Gastrointestinal: normal bowel sounds, soft; No guarding, No rebound; tenderness (generalized) Extremities: normal range of motion, non-tender, normal inspection, normal capillary refill Back: normal inspection, no CVA tenderness, no vertebral tenderness Neurologic/Psychiatric: no motor/sensory deficits, alert, normal mood/affect Skin: normal color, warm/dry (BARBARA ANAYA) Progress/Results/Core Measures Results/Orders Lab Results Laboratory Tests Test 08/18/22 00:02 08/18/22 22:14 08/18/22 22:16 08/18/22 23:18 Range/Units Urine Color YELLOW Urine Clarity CLEAR Urine pH 6.0 5-9 Urine Specific [place] >=1.030 1.016-1.022 Urine Protein NEGATIVE NEGATIVE Urine Glucose (UA) 2+ H NEGATIVE Urine Ketones 3+ H NEGATIVE Urine Nitrite NEGATIVE NEGATIVE Urine Bilirubin NEGATIVE NEGATIVE Urine Urobilinogen 0.2 < = 1.0 MG/DL Urine Leukocyte Esterase NEGATIVE NEGATIVE Urine RBC (Auto) NEGATIVE NEGATIVE Urine RBC NONE /HPF Urine WBC RARE /HPF Urine Crystals NONE /LPF Urine Bacteria TRACE /HPF Urine Casts NONE /LPF Urine Mucus SMALL H /LPF Urine Culture Indicated NO Urine Opiates Screen NEGATIVE NEGATIVE Urine Oxycodone Screen NEGATIVE NEGATIVE Urine Methadone Screen NEGATIVE NEGATIVE Urine Propoxyphene Screen NEGATIVE NEGATIVE Urine Barbiturates Screen NEGATIVE NEGATIVE Ur Tricyclic Antidepressants Screen NEGATIVE NEGATIVE Urine Phencyclidine Screen NEGATIVE NEGATIVE Urine Amphetamines Screen NEGATIVE NEGATIVE Urine Methamphetamines Screen NEGATIVE NEGATIVE Urine Benzodiazepines Screen NEGATIVE NEGATIVE Urine Cocaine Screen NEGATIVE NEGATIVE Urine Cannabinoids Screen NEGATIVE NEGATIVE Influenza Type A (RT-PCR) Not Detected Not Detecte Influenza Type B (RT-PCR) Not Detected Not Detecte SARS-CoV-2 RNA (RT-PCR) Negative Not Detecte White Blood Count 7.0 4.3-11.0 10^3/uL Red Blood Count 5.42 4.30-5.52 10^6/uL Hemoglobin 16.8 13.3-17.7 g/dL Hematocrit 49 40-54 % Mean Corpuscular Volume 90 80-99 fL Mean Corpuscular Hemoglobin 31 25-34 pg Mean Corpuscular Hemoglobin Concent 34 32-36 g/dL Red Cell Distribution Width 12.8 10.0-14.5 % Platelet Count 326 130-400 10^3/uL Mean Platelet Volume 8.8 L 9.0-12.2 fL Immature Granulocyte % (Auto) 2 % Neutrophils (%) (Auto) 88 H 42-75 % Lymphocytes (%) (Auto) 5 L 12-44 % Monocytes (%) (Auto) 3 0-12 % Eosinophils (%) (Auto) 1 0-10 % Basophils (%) (Auto) 1 0-10 % Neutrophils # (Auto) 6.2 1.8-7.8 10^3/uL Lymphocytes # (Auto) 0.4 L 1.0-4.0 10^3/uL Monocytes # (Auto) 0.2 0.0-1.0 10^3/uL Eosinophils # (Auto) 0.1 0.0-0.3 10^3/uL Basophils # (Auto) 0.0 0.0-0.1 10^3/uL Immature Granulocyte # (Auto) 0.1 0.0-0.1 10^3/uL Neutrophils % (Manual) 93 % Lymphocytes % (Manual) 2 % Monocytes % (Manual) 5 % Blood Morphology Comment NORMAL Sodium Level 142 135-145 MMOL/L Potassium Level 4.4 3.6-5.0 MMOL/L Chloride Level 104 98-107 MMOL/L Carbon Dioxide Level 14 L 21-32 MMOL/L Anion Gap 24 H 5-14 MMOL/L Blood Urea Nitrogen 16 7-18 MG/DL Creatinine 1.16 0.60-1.30 MG/DL Estimat Glomerular Filtration Rate 88 BUN/Creatinine Ratio 14 Glucose Level 419 *H 70-105 MG/DL Calcium Level 9.2 8.5-10.1 MG/DL Corrected Calcium 9.3 8.5-10.1 MG/DL Total Bilirubin 0.5 0.1-1.0 MG/DL Aspartate Amino Transf (AST/SGOT) 10 5-34 U/L Alanine Aminotransferase (ALT/SGPT) 17 0-55 U/L Alkaline Phosphatase 65 40-136 U/L Total Protein 7.2 6.4-8.2 GM/DL Albumin 3.9 3.2-4.5 GM/DL Blood Gas Puncture Site RIGHT RADIAL Blood Gas Patient Temperature 36.2 Arterial Blood pH 7.31 *L 7.37-7.43 Arterial Blood Partial Pressure CO2 32 L 35-45 MMHG Arterial Blood Partial Pressure O2 94 H 79-93 MMHG Arterial Blood HCO3 16 *L 23-27 MMOL/L Arterial Blood Total CO2 16.6 L 21.0-31.0 MMOL/L Arterial Blood Oxygen Saturation 97 94-100 % Arterial Blood Base Excess -9.6 L -2.5-2.5 MMOL/L Prosper Test YES-POS Blood Gas Ventilator Setting NA Blood Gas Inspired Oxygen NA Test 08/18/22 23:26 08/19/22 00:44 08/19/22 03:09 Range/Units Glucometer 234 H 70-110 MG/DL Sodium Level 144 144 135-145 MMOL/L Potassium Level 4.1 4.0 3.6-5.0 MMOL/L Chloride Level 110 H 113 H 98-107 MMOL/L Carbon Dioxide Level 17 L 15 L 21-32 MMOL/L Anion Gap 17 H 16 H 5-14 MMOL/L Blood Urea Nitrogen 13 12 7-18 MG/DL Creatinine 0.98 0.86 0.60-1.30 MG/DL Estimat Glomerular Filtration Rate 108 121 BUN/Creatinine Ratio 13 14 Glucose Level 302 H 272 H 70-105 MG/DL Calcium Level 8.5 8.2 L 8.5-10.1 MG/DL (BRAD BENSON MD) My Orders Orders - BRAD BENSON MD Accucheck Prn (08/18/22 23:08) Arterial Blood Gas (08/18/22 23:17) Basic Metabolic Panel (08/19/22 00:39) Ondansetron Injection (Zofran Injectio (08/19/22 01:00) Ns Iv 1000 Ml (Sodium Chloride 0.9%) (08/19/22 00:50) Insulin (Regular) Human (Novolin R (Per (08/19/22 01:32) Accucheck Stat ONCE (08/19/22 01:59) Basic Metabolic Panel (08/19/22 03:05) (BRAD BENSON MD) Medications Given in ED Current Medications Medications Dose Ordered Sig/Bianca Route Start Time Stop Time Status Last Admin Dose Admin Ondansetron HCl 4 mg ONCE ONCE IVP 08/18/22 22:30 08/18/22 22:31 DC 08/18/22 22:33 4 MG Ondansetron HCl 4 mg ONCE ONCE IVP 08/19/22 01:00 08/19/22 01:01 DC 08/19/22 01:02 4 MG (BRAD BENSON MD) Vital Signs/I&O 08/18/22 22:13 Temp 36.7 Pulse 132 Resp 20 B/P (MAP) 106/77 (87) Pulse Ox 100 O2 Delivery Room Air 08/19/22 00:00 Intake Total 2000 ml Balance 2000 ml (BRAD BENSON MD) Progress Progress Note : Time: 20:12 Progress Note patient evaluated, will give NS 1 L IV. Labs and assess. Reg Insulin 4 units SC 2029 patient complains of more nausea, Zofran 4 mg IV. 2245 Glucose 419, Gap 24, CO2 14. 2nd liter NS IV. 2300 Patient reports improvement in nausea, has not provided urine. Report to Dr. Benson, will recheck glucose and check ABGs. (BARBARA ANAYA) Progress Note #1: Time: 00:52 Progress Note Patient care assumed at shift change, patient receiving IV fluids. Added an ABG. He is found to be in mild DKA. He does have an anion gap of 24. pH on his ABG is 7.31, bicarb on his ABG is 16. On reexamination he appears comfortable in the bed, still tachycardic in the 120s. IV fluids have been discontinued. We will restart normal saline at 250 cc an hour. Redrawing a basic metabolic panel at this time. He is asking for another dose of Zofran. He is taking 1 or 2 ice chips every 15 minutes. Overall feels improved. Will determine disposition once I review the repeat basic metabolic panel. Progress Note #2: Time: 03:46 Progress Note Patient reassessed, feeling completely asymptomatic. Tolerating water. We will recheck on his BMP shows his blood sugars down to 272, his gap is closed down to 16. Still little tachycardic, heart rate 120 but no nausea no pain. He states he does not routinely check his blood sugars at home he is not sure what a "normal" blood sugar would be for him. Vital signs otherwise are stable. Potassium is normal, CO2 16. He has had 3 L total of fluid, 10 units of regular insulin. We will send him home with Zofran. Strong encouragement to follow-up with [facility] and get a hemoglobin A1c and more information on diabetes management from a agricultural extension educator. He is comfortable with this plan of care. All questions are sought and answered (BRAD BENSON MD) Transfer of Care Time: 23:00 Care transferred to: Dr. Benson ([facility]BARA ANAYA [facility]) Departure Impression Primary Impression: Hyperglycemia Additional Impression: Nausea & vomiting Qualified Codes: R11.14 - Bilious vomiting Disposition: 01 HOME, SELF-CARE Condition: Improved Departure-Patient Inst. Decision time for Depature: 03:48 (BRAD BENSON MD) Referrals: [facility] [place] PHYSICIAN (PCP) Primary Care Physician Patient Instructions: Carb Counting for Adults With Diabetes, Diabetes Type 1, Adult (DC) Add. Discharge Instructions: Resume your normal insulin routine today. Start a bland diet and then advance as tolerated. You need to check your blood sugars with every meal. Please call [facility] for follow-up appointment with the diabetes educato r. Return to the emergency department for any new, concerning or emergent complaints. Scripts Ondansetron (Ondansetron Odt) 4 Mg Tab.rapdis 4 MG SL Q8H PRN for NAUSEA/VOMITING, #12 TAB Prov: BRAD BENSON MD 08/19/22 Copy Copies To 1: KENDRA BURNS AMY ARNP Aug 18, 2022 22:26 BRAD BENSON MD Aug 19, 2022 00:54
[2022-08-18] MEDS ORDERED: inSUlin (REGULAR) HUMAN 1 UNIT/0.01 ML (CHARGE PER UNIT) SC STA (22:28)
[2022-08-18] MEDS ORDERED: ONDANSETRON 4 MG/2 ML (SDV) Z0FRAN IVP ONE (22:30)
[2022-08-18] MEDS ORDERED: NS IV 1000 ML 1,000 ML IV SCH ×2 (22:30→23:00)
[2022-08-18 22:32] LABS: BASOPHILS % (AUTO) 1 % (0-10); EOSINOPHILS # (AUTO) 0.1 10^3/uL (0.0-0.3); EOSINOPHILS % (AUTO) 1 % (0-10); HEMATOCRIT 49 % (40-54); HEMOGLOBIN 16.8 g/dL (13.3-17.7); LYMPHOCYTES # (AUTO) 0.4 10^3/uL (1.0-4.0); LYMPHOCYTES % (AUTO) 5 % (12-44); MEAN CORPUSCULAR HEMOGLOBIN 31 pg (25-34); MEAN CORPUSCULAR HGB CONC 34 g/dL (32-36); MEAN CORPUSCULAR VOLUME 90 fL (80-99); MEAN PLATELET VOLUME 8.8 fL (9.0-12.2); MONOCYTES # (AUTO) 0.2 10^3/uL (0.0-1.0); MONOCYTES % (AUTO) 3 % (0-12); NEUTROPHILS # (AUTO) 6.2 10^3/uL (1.8-7.8); NEUTROPHILS % (AUTO) 88 % (42-75); PLATELET COUNT 326 10^3/uL (130-400)
[2022-08-18 22:42] LABS: ALBUMIN 3.9 GM/DL (3.2-4.5); POTASSIUM 4.4 MMOL/L (3.6-5.0)
[2022-08-18 22:43] LABS: CALCIUM 9.2 MG/DL (8.5-10.1)
[2022-08-18 22:44] LABS: TOTAL PROTEIN 7.2 GM/DL (6.4-8.2)
[2022-08-18 22:46] LABS: BILIRUBIN,TOTAL 0.5 MG/DL (0.1-1.0)
[2022-08-18 22:47] LABS: LYMPHOCYTES % (MANUAL) 2 %; MONOCYTES % (MANUAL) 5 %; NEUTROPHILS % (MANUAL) 93 %; RBC MORPH NORMAL
[2022-08-18 22:48] LABS: CREATININE SERUM 1.16 MG/DL (0.60-1.30)
[2022-08-18 23:24] LABS: ABG BASE EXCESS -9.6 MMOL/L (-2.5-2.5); ABG OXYGEN SATURATION 97 % (94-100); ABG PCO2 32 MMHG (35-45); ABG PO2 94 MMHG (79-93); ABG TCO2 16.6 MMOL/L (21.0-31.0)
[2022-08-18 23:27] LABS: ABG PH 7.31 (7.37-7.43)
[2022-08-18 23:28] LABS: ALLENS TEST YES-POS; PATIENT TEMP 36.2
[2022-08-19 00:14] LABS: CLARITY,URINE CLEAR; COLOR,URINE YELLOW; GLUCOSE, URINE (UA) 2+ (NEGATIVE); KETONES,URINE 3+ (NEGATIVE); LEUKOCYTE ESTERASE ,URINE NEGATIVE (NEGATIVE); NITRITE,URINE NEGATIVE (NEGATIVE); PROTEIN,URINE NEGATIVE (NEGATIVE)
[2022-08-19 00:29] LABS: BACTERIA,URINE TRACE /HPF; WBC,URINE RARE /HPF
[2022-08-19 00:30] LABS: AMPHETAMINE SCREEN, URINE NEGATIVE (NEGATIVE); BARBITURATE SCREEN URINE NEGATIVE (NEGATIVE); BENZODIAZEPINES SCREEN URINE NEGATIVE (NEGATIVE); BILIRUBIN,URINE NEGATIVE (NEGATIVE); CANNABINOID SCREEN, URINE NEGATIVE (NEGATIVE); COCAINE SCREEN URINE NEGATIVE (NEGATIVE); METHADONE STAT NEGATIVE (NEGATIVE); OPIATE SCREEN URINE NEGATIVE (NEGATIVE); OXYCODONE STAT NEGATIVE (NEGATIVE); PROPOXYPHENE STAT NEGATIVE (NEGATIVE); TRICYCLIC ANTIDEPRESSANTS SCRE NEGATIVE (NEGATIVE)
[2022-08-19] MEDS ORDERED: NS IV 1000 ML 1,000 ML IV STA (00:50)
[2022-08-19] MEDS ORDERED: ONDANSETRON 4 MG/2 ML (SDV) Z0FRAN IVP ONE (01:00)
[2022-08-19 01:02] LABS: POTASSIUM 4.1 MMOL/L (3.6-5.0)
[2022-08-19 01:03] LABS: CALCIUM 8.5 MG/DL (8.5-10.1)
[2022-08-19 01:08] LABS: CREATININE SERUM 0.98 MG/DL (0.60-1.30)
[2022-08-19] MEDS ORDERED: inSUlin (REGULAR) HUMAN 1 UNIT/0.01 ML (CHARGE PER UNIT) SC STA (01:32)
[2022-08-19 03:28] LABS: CALCIUM 8.2 MG/DL (8.5-10.1)
[2022-08-19 03:33] LABS: CREATININE SERUM 0.86 MG/DL (0.60-1.30)
[2022-08-19] MEDS ORDERED: ONDA4TAB11 SL (03:50)
[2022-08-19 04:01] VITALS: BP 110/67
== END 2022-08-19 04:04 | disposition home or self-care (01) ==
LOC: EDUNIT# 22:10 → ER 22:12
DX: E11.65 Type 2 diabetes mellitus with hyperglycemia (principal); R11.2 Nausea with vomiting, unspecified; E11.10 Type 2 diabetes mellitus with ketoacidosis without coma; Z79.4 Long term (current) use of insulin; Z28.310 Unvaccinated for COVID-19; Z20.822 Contact with and (suspected) exposure to COVID-19
CPT/HCPCS: 36415; 80048; 80053; 80306; 81000; 82805; 82947; 85007; 85027; 87636; 96361; 96372; 96374; 96376

== ENCOUNTER 2022-10-24 10:52 | Emergency (ER) | payer MEDICAID ==
[~2022-10-24] VITALS: Ht 175 cm; Wt 86.0 kg
[~2022-10-24 10:52] MED LIST changes: +ONDA4TAB11 SL
--- NOTE | 2022-10-24 11:42 | ED GI ---
General Chief Complaint: Abdominal/GI Problems Stated Complaint: VOMITING | DIARRHEA Nursing Triage Note: ARRIVED VIA AMB WITH COMPLAINTS OF VOMITING STARTING LAST NIGHT. PT IS A DIABETIC. Source of Information: Patient Exam Limitations: No Limitations History of Present Illness Date Seen by Provider: Oct 24, 2022 Time Seen by Provider: 11:30 Initial Comments 27-year-old male presents to the ED with complaints of diarrhea and vomiting starting last night. States he has had approximately 7 episodes of vomiting and similar amount of loose stools. States he has not been feeling well for the last week, complaining of a headache over the last week. He is diabetic. He states he lost his glucometer months ago. Has been taking his insulin, but not checking his blood sugar. He denies any fever or abdominal pain. Allergies and Home Medications Allergies Coded Allergies: No Known Drug Allergies (Unverified , 07/17/22) Patient Home Medication List Home Medication List Reviewed: Yes Insulin Aspart (Novolog Flexpen) 100 Unit/Ml (3 Ml) Solution, 5 UNITS SQ AC Prescribed by: CELESTE MILLIGAN on 07/19/22 1149 Insulin Detemir (Levemir Flextouch) 100 Unit/Ml (3 Ml) Insuln.pen, 20 UNIT SQ HS Prescribed by: CELESTE MILLIGAN on 07/19/22 1149 Ondansetron (Ondansetron Odt) 4 Mg Tab.rapdis, 4 MG SL Q8H PRN for NAUSEA/VOMITING Prescribed by: BRAD BENSON on 08/19/22 0350 Ondansetron (Ondansetron Odt) 4 Mg Tab.rapdis, 4 MG SL Q4H PRN for NAUSEA/VOMITING Prescribed by: Barbara Arellano on 10/24/22 1415 Review of Systems Review of Systems Constitutional: see HPI Past Qlduvbw-Fugwzu-Cslfeb Hx Patient Social History Tobacco Use?: No Substance use?: No Alcohol Use?: No Immunizations Up To Date First/Initial COVID19 Vaccinat: na Past Medical History Surgery/Hospitalization HX: IDDM, ASPERGERS SYNDROME, ABCESS UNDER LEFT ARM Surgeries: No (None reported) Respiratory: No Cardiac: No Neurological: No Reproductive Disorders: No Genitourinary: No Gastrointestinal: No Musculoskeletal: No Endocrine: Yes Diabetes, Insulin dep HEENT: No Cancer: No Psychosocial: Yes (Asperger syndrome) Family Medical History Diabetes Physical Exam Vital Signs Vital Signs - First Documented 10/24/22 11:13 Temp 36.3 Pulse 138 Resp 16 B/P (MAP) 107/72 (84) Pulse Ox 98 O2 Delivery Room Air Capillary Refill : Less Than 3 Seconds Height/Weight/BMI Height: '" Weight: lbs. oz. kg; 28.00 BMI Method: General Appearance: WD/WN, no apparent distress Neck: supple, normal inspection Respiratory: lungs clear, normal breath sounds, no respiratory distress, no accessory muscle use Cardiovascular: no edema, no gallop, no JVD, no murmur, tachycardia Gastrointestinal: normal bowel sounds, non tender, soft Extremities: normal range of motion, normal inspection Neurologic/Psychiatric: alert, normal mood/affect, oriented x 3 Skin: normal color, warm/dry Progress/Results/Core Measures Results/Orders Lab Results Laboratory Tests Test 10/24/22 11:23 10/24/22 11:40 10/24/22 11:50 10/24/22 13:31 Range/Units Glucometer 390 H 269 H 70-110 MG/DL Urine Color YELLOW Urine Clarity CLEAR Urine pH 6.0 5-9 Urine Specific [place] 1.010 L 1.016-1.022 Urine Protein NEGATIVE NEGATIVE Urine Glucose (UA) 3+ H NEGATIVE Urine Ketones NEGATIVE NEGATIVE Urine Nitrite NEGATIVE NEGATIVE Urine Bilirubin NEGATIVE NEGATIVE Urine Urobilinogen 0.2 < = 1.0 MG/DL Urine Leukocyte Esterase NEGATIVE NEGATIVE Urine RBC (Auto) NEGATIVE NEGATIVE Urine RBC NONE /HPF Urine WBC NONE /HPF Urine Squamous Epithelial Cells RARE /HPF Urine Crystals NONE /LPF Urine Bacteria NEGATIVE /HPF Urine Casts NONE /LPF Urine Hyaline Casts RARE /LPF Urine Mucus SMALL H /LPF Urine Culture Indicated NO White Blood Count 15.1 H 4.3-11.0 10^3/uL Red Blood Count 6.15 H 4.30-5.52 10^6/uL Hemoglobin 19.3 H 13.3-17.7 g/dL Hematocrit 53 40-54 % Mean Corpuscular Volume 86 80-99 fL Mean Corpuscular Hemoglobin 31 25-34 pg Mean Corpuscular Hemoglobin Concent 37 H 32-36 g/dL Red Cell Distribution Width 11.5 10.0-14.5 % Platelet Count 312 130-400 10^3/uL Mean Platelet Volume 8.8 L 9.0-12.2 fL Immature Granulocyte % (Auto) 1 % Neutrophils (%) (Auto) 85 H 42-75 % Lymphocytes (%) (Auto) 7 L 12-44 % Monocytes (%) (Auto) 4 0-12 % Eosinophils (%) (Auto) 3 0-10 % Basophils (%) (Auto) 0 0-10 % Neutrophils # (Auto) 12.9 H 1.8-7.8 10^3/uL Lymphocytes # (Auto) 1.0 1.0-4.0 10^3/uL Monocytes # (Auto) 0.6 0.0-1.0 10^3/uL Eosinophils # (Auto) 0.4 H 0.0-0.3 10^3/uL Basophils # (Auto) 0.1 0.0-0.1 10^3/uL Immature Granulocyte # (Auto) 0.2 H 0.0-0.1 10^3/uL Neutrophils % (Manual) 77 % Lymphocytes % (Manual) 10 % Monocytes % (Manual) 3 % Eosinophils % (Manual) 6 % Band Neutrophils 4 % Blood Morphology Comment NORMAL Sodium Level 136 135-145 MMOL/L Potassium Level 4.7 3.6-5.0 MMOL/L Chloride Level 107 98-107 MMOL/L Carbon Dioxide Level 17 L 21-32 MMOL/L Anion Gap 12 5-14 MMOL/L Blood Urea Nitrogen 18 7-18 MG/DL Creatinine 1.18 0.60-1.30 MG/DL Estimat Glomerular Filtration Rate 86 BUN/Creatinine Ratio 15 Glucose Level 385 H 70-105 MG/DL Calcium Level 10.2 H 8.5-10.1 MG/DL Corrected Calcium 8.5-10.1 MG/DL Phosphorus Level 2.2 L 2.3-4.7 MG/DL Total Bilirubin 0.5 0.1-1.0 MG/DL Aspartate Amino Transf (AST/SGOT) 12 5-34 U/L Alanine Aminotransferase (ALT/SGPT) 20 0-55 U/L Alkaline Phosphatase 61 40-136 U/L Total Protein 8.4 H 6.4-8.2 GM/DL Albumin 4.7 H 3.2-4.5 GM/DL Lipase 33 8-78 U/L Beta-Hydroxybutyrate (Chem panel) 0.39 H 0.00-0.27 MMOL/L Orders Orders - BARBARA ARELLANO APRN Ua Culture If Indicated (10/24/22 11:19) Ed Iv/Invasive Line Start (10/24/22 11:35) Ns Iv 1000 Ml (Sodium Chloride 0.9%) (10/24/22 11:45) Comprehensive Metabolic Panel (10/24/22 11:35) Lipase (10/24/22 11:35) Cbc With Automated Diff (10/24/22 11:35) Ondansetron Injection (Zofran Injectio (10/24/22 11:45) Beta Hydroxybutyrate (10/24/22 11:35) Phosphorus (10/24/22 11:35) Manual Differential (10/24/22 11:50) Ns Iv 1000 Ml (Sodium Chloride 0.9%) (10/24/22 12:30) Ondansetron Injection (Zofran Injectio (10/24/22 13:15) Medications Given in ED Vital Signs/I&O 10/24/22 10/24/22 11:13 14:22 Temp 36.3 Pulse 138 99 Resp 16 16 B/P (MAP) 107/72 (84) 123/88 Pulse Ox 98 97 O2 Delivery Room Air Room Air Blood Pressure Mean: 84 FSBG Bedside Testing Finger Stick Blood Glucose: 390 Blood Glucose Action Taken: Provider notified Progress Progress Note #1: Time: 11:41 Progress Note Patient seen and evaluated, resting comfortably in bed, no acute distress. Based on exam and symptoms, concern for DKA, gastroenteritis. Work-up initiated including CBC, CMP, lipase, beta hydroxybutyrate, phosphorus, UA. IV fluids and Zofran ordered. Progress Note #2: Time: 14:01 Progress Note Labs reviewed. CBC shows elevated WBC 15.1, elevated RBC 6.15, Hemoglobin elevated 19.3. CMP shows normal potassium 4.7, decreased CO2 17, normal anion gap 12, elevated glucose 385, slightly decreased phosphorus 2.2, slightly elevated bet-hydroxybutyrate at 0.39. UA shows 3+ glucose, negative ketones. Blood glucose improved after IV fluids. Results discussed with patient. Will discharge with zofran. Discharge instructions and return precautions provided. Departure Impression Primary Impression: Vomiting Additional Impression: Diarrhea Disposition: 01 HOME, SELF-CARE Condition: Stable Departure-Patient Inst. Decision time for Depature: 14:14 Referrals: NO,LOCAL PHYSICIAN (PCP/Family) Primary Care Physician Patient Instructions: Nausea and Vomiting of Add. Discharge Instructions: Take Zofran as needed for nausea or vomiting, only take when needed because it may cause constipation Return for uncontrolled blood sugar, recurrent vomiting, or any other new, concerning, or worsening symptoms. All discharge instructions reviewed with patient and/or family. Voiced understanding. Scripts Ondansetron (Ondansetron Odt) 4 Mg Tab.rapdis 4 MG SL Q4H PRN for NAUSEA/VOMITING, #12 TAB Prov: BARBARA ARELLANO APRN 10/24/22 BARBARA ARELLANO APRN Oct 24, 2022 11:42
[2022-10-24] MEDS ORDERED: NS IV 1000 ML 1,000 ML IV SCH ×2 (11:45→12:30)
[2022-10-24] MEDS ORDERED: ONDANSETRON 4 MG/2 ML (SDV) Z0FRAN IVP ONE ×2 (11:45→13:15)
[2022-10-24 11:55] LABS: BILIRUBIN,URINE NEGATIVE (NEGATIVE); CLARITY,URINE CLEAR; COLOR,URINE YELLOW; GLUCOSE, URINE (UA) 3+ (NEGATIVE); KETONES,URINE NEGATIVE (NEGATIVE); LEUKOCYTE ESTERASE ,URINE NEGATIVE (NEGATIVE); NITRITE,URINE NEGATIVE (NEGATIVE); PROTEIN,URINE NEGATIVE (NEGATIVE)
[2022-10-24 12:05] LABS: BACTERIA,URINE NEGATIVE /HPF; HYALINE CASTS, URINE RARE /LPF; SQUAMOUS EPITHELIAL CELL,UR RARE /HPF
[2022-10-24 12:05] LABS: BASOPHILS # (AUTO) 0.1 10^3/uL (0.0-0.1); BASOPHILS % (AUTO) 0 % (0-10); EOSINOPHILS # (AUTO) 0.4 10^3/uL (0.0-0.3); EOSINOPHILS % (AUTO) 3 % (0-10); HEMATOCRIT 53 % (40-54); HEMOGLOBIN 19.3 g/dL (13.3-17.7); LYMPHOCYTES % (AUTO) 7 % (12-44); MEAN CORPUSCULAR HEMOGLOBIN 31 pg (25-34); MEAN CORPUSCULAR HGB CONC 37 g/dL (32-36); MEAN CORPUSCULAR VOLUME 86 fL (80-99); MEAN PLATELET VOLUME 8.8 fL (9.0-12.2); MONOCYTES # (AUTO) 0.6 10^3/uL (0.0-1.0); MONOCYTES % (AUTO) 4 % (0-12); NEUTROPHILS # (AUTO) 12.9 10^3/uL (1.8-7.8); NEUTROPHILS % (AUTO) 85 % (42-75); PLATELET COUNT 312 10^3/uL (130-400); WHITE BLOOD COUNT 15.1 10^3/uL (4.3-11.0)
[2022-10-24 12:16] LABS: ALBUMIN 4.7 GM/DL (3.2-4.5)
[2022-10-24 12:17] LABS: CHLORIDE 107 MMOL/L (98-107); POTASSIUM 4.7 MMOL/L (3.6-5.0); SODIUM 136 MMOL/L (135-145)
[2022-10-24 12:18] LABS: CALCIUM 10.2 MG/DL (8.5-10.1)
[2022-10-24 12:19] LABS: GLUCOSE 385 MG/DL (70-105); TOTAL PROTEIN 8.4 GM/DL (6.4-8.2)
[2022-10-24 12:20] LABS: CARBON DIOXIDE 17 MMOL/L (21-32)
[2022-10-24 12:21] LABS: BILIRUBIN,TOTAL 0.5 MG/DL (0.1-1.0); PHOSPHORUS 2.2 MG/DL (2.3-4.7)
[2022-10-24 12:23] LABS: ALKALINE PHOSPHATASE 61 U/L (40-136); CREATININE SERUM 1.18 MG/DL (0.60-1.30); GFR ESTIMATED 86
[2022-10-24 12:24] LABS: BUN/CREATININE RATIO 15
[2022-10-24 12:26] LABS: ALANINE AMINOTRANSFERASE 20 U/L (0-55); LIPASE 33 U/L (8-78)
[2022-10-24 12:34] LABS: BAND NEUTROPHILS 4 %; EOSINOPHILS % (MANUAL) 6 %; LYMPHOCYTES % (MANUAL) 10 %; MONOCYTES % (MANUAL) 3 %; NEUTROPHILS % (MANUAL) 77 %; RBC MORPH NORMAL
[2022-10-24] MEDS ORDERED: ONDA4TAB11 SL (14:15)
[2022-10-24 14:22] VITALS: BP 123/88
== END 2022-10-24 14:22 | disposition home or self-care (01) ==
LOC: EDUNIT# 10:52 → ER 10:55
DX: R11.10 Vomiting, unspecified (principal); R19.7 Diarrhea, unspecified; E11.9 Type 2 diabetes mellitus without complications; Z79.4 Long term (current) use of insulin; Z28.310 Unvaccinated for COVID-19
CPT/HCPCS: 36415; 80053; 81000; 82010; 82947; 83690; 84100; 85007; 85027

== ENCOUNTER 2022-12-04 17:21 | Emergency (ER) | payer MEDICAID ==
[~2022-12-04 17:21] MED LIST changes: -INSU100I29 SQ; +INSU100I30 SQ
[2022-12-04] MEDS ORDERED: NS IV 1000 ML 1,000 ML IV STA ×3 (18:19→19:31)
[2022-12-04 18:36] LABS: BASOPHILS % (AUTO) 0 % (0-10); EOSINOPHILS # (AUTO) 0.3 10^3/uL (0.0-0.3); EOSINOPHILS % (AUTO) 3 % (0-10); HEMATOCRIT 46 % (40-54); HEMOGLOBIN 16.6 g/dL (13.3-17.7); LYMPHOCYTES # (AUTO) 2.9 10^3/uL (1.0-4.0); LYMPHOCYTES % (AUTO) 25 % (12-44); MEAN CORPUSCULAR HEMOGLOBIN 31 pg (25-34); MEAN CORPUSCULAR HGB CONC 36 g/dL (32-36); MEAN CORPUSCULAR VOLUME 86 fL (80-99); MEAN PLATELET VOLUME 8.8 fL (9.0-12.2); MONOCYTES # (AUTO) 0.5 10^3/uL (0.0-1.0); MONOCYTES % (AUTO) 5 % (0-12); NEUTROPHILS # (AUTO) 7.7 10^3/uL (1.8-7.8); NEUTROPHILS % (AUTO) 67 % (42-75); PLATELET COUNT 325 10^3/uL (130-400); WHITE BLOOD COUNT 11.5 10^3/uL (4.3-11.0)
[2022-12-04 18:38] LABS: BILIRUBIN,URINE NEGATIVE (NEGATIVE); CLARITY,URINE CLEAR; COLOR,URINE YELLOW; GLUCOSE, URINE (UA) 3+ (NEGATIVE); KETONES,URINE 1+ (NEGATIVE); LEUKOCYTE ESTERASE ,URINE NEGATIVE (NEGATIVE); NITRITE,URINE NEGATIVE (NEGATIVE); PH,URINE 5.5 (5-9); PROTEIN,URINE NEGATIVE (NEGATIVE)
[2022-12-04 18:49] LABS: BACTERIA,URINE NEGATIVE /HPF; SQUAMOUS EPITHELIAL CELL,UR RARE /HPF
[2022-12-04 18:51] LABS: ALBUMIN 4.2 GM/DL (3.2-4.5)
[2022-12-04 18:52] LABS: POTASSIUM 4.7 MMOL/L (3.6-5.0)
[2022-12-04 18:53] LABS: CALCIUM 9.8 MG/DL (8.5-10.1)
[2022-12-04 18:54] LABS: TOTAL PROTEIN 7.3 GM/DL (6.4-8.2)
[2022-12-04 18:56] LABS: BILIRUBIN,TOTAL 0.5 MG/DL (0.1-1.0)
[2022-12-04 18:58] LABS: CREATININE SERUM 1.45 MG/DL (0.60-1.30)
[2022-12-04] MEDS ORDERED: inSUlin (REGULAR) HUMAN 1 UNIT/0.01 ML (CHARGE PER UNIT) IV ONE (19:15)
[2022-12-04 21:33] LABS: CALCIUM 8.3 MG/DL (8.5-10.1); CREATININE SERUM 0.95 MG/DL (0.60-1.30); POTASSIUM 3.6 MMOL/L (3.6-5.0)
--- NOTE | 2022-12-04 21:43 | ED General ---
General Chief Complaint: Glucose Problems Stated Complaint: BLOOD SUGER HIGH /[facility] SENT OVER Nursing Triage Note: PT AMB TO TRIAGE WITH C/O HIGH BLOOD SUGAR, N/D TODAY. PT HAS KETONES AND GLUCOSE IN URINE. 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 Patient with a history of type 2 diabetes and does take insulin. Not currently on any other medication besides insulin. Did not take his insulin today. Reports some vomiting and diarrhea as since yesterday. He states he vomited 3-4 times yesterday and developed watery stools today. The vomiting has improved. States he had episode of lightheadedness and felt like his vision was blurry today while at work so he got evaluated and his blood sugar read high at [facility]. History of DKA in the past. Denies fever, chills, chest pain, cough, lower extremity weakness or sensory changes, dysuria, increased urine frequency. Does report some mild shortness of breath. (ANITA CHERRY) Allergies and Home Medications Allergies Coded Allergies: No Known Drug Allergies (Unverified , 07/17/22) Patient Home Medication List Home Medication List Reviewed: Yes (ANITA CHERRY) Insulin Aspart (Novolog Flexpen) 100 Unit/Ml (3 Ml) Solution, 5 UNITS SQ AC Prescribed by: CELESTE MILLIGAN on 07/19/22 1149 Insulin Detemir (Levemir Flextouch) 100 Unit/Ml (3 Ml) Insuln.pen, 20 UNIT SQ HS Prescribed by: CELESTE MILLIGAN on 07/19/22 1149 Ondansetron (Ondansetron Odt) 4 Mg Tab.rapdis, 4 MG SL Q8H PRN for NAUSEA/VOMITING Prescribed by: BRAD BENSON on 08/19/22 0350 Ondansetron (Ondansetron Odt) 4 Mg Tab.rapdis, 4 MG SL Q4H PRN for NAUSEA/VOMITING Prescribed by: Barbara Arellano on 10/24/22 1415 Review of Systems Review of Systems Constitutional: No chills, No diaphoresis, No malaise EENTM: blurred vision; No double vision Respiratory: No cough, No dyspnea on exertion; short of breath Cardiovascular: No chest pain Gastrointestinal: No abdominal pain; diarrhea, nausea, vomiting Genitourinary: No decreased output, No discharge, No dysuria, No frequency Musculoskeletal: No back pain, No joint pain Skin: No change in color, No change in hair/nails (ANITA CHERRY) All Other Systems Reviewed Negative Unless Noted: Yes (ANITA CHERRY) Past Jcvwzsz-Gqjjef-Qssiyx Hx Patient Social History Tobacco Use?: Yes Use of E-Cig and/or Vaping dev: No Substance use?: No Alcohol Use?: No Pt feels they are or have been: No (ANITA CHERRY) Immunizations Up To Date Influenza Vaccine Up-to-Date: No; Not Current First/Initial COVID19 Vaccinat: na Second COVID19 Vaccination Rich: na Third COVID19 Vaccination Date: na (ANITA CHERRY) Past Medical History Surgery/Hospitalization HX: IDDM, ASPERGERS SYNDROME, ABCESS UNDER LEFT ARM Surgeries: No (None reported) Respiratory: No Cardiac: No Neurological: No Reproductive Disorders: No Genitourinary: No Gastrointestinal: No Musculoskeletal: No Endocrine: Yes Diabetes, Insulin dep HEENT: No Cancer: No Psychosocial: Yes (Asperger syndrome) (ANITA CHERRY) Family Medical History Diabetes (ANITA CHERRY) Physical Exam Vital Signs Vital Signs - First Documented 12/04/22 12/04/22 18:02 21:48 Temp 36.8 Pulse 100 Resp 16 B/P (MAP) 111/80 (90) Pulse Ox 99 O2 Delivery Room Air (ARN GAFFNEYA Sherita DO) Vital Signs Capillary Refill : (ANITA CHERRY) Height, Weight, BMI Height: '" Weight: lbs. oz. kg; 28.00 BMI Method: General Appearance: No Apparent Distress, WD/WN Eyes: Bilateral Eye Normal Inspection, Bilateral Eye PERRL, Bilateral Eye EOMI HEENT: PERRL/EOMI, TMs Normal, Normal ENT Inspection, Pharynx Normal Neck: Full Range of Motion, Normal Inspection, Non Tender, Supple Respiratory: Chest Non Tender, Lungs Clear, Normal Breath Sounds, No Accessory Muscle Use, No Respiratory Distress Cardiovascular: Regular Rate, Rhythm, No Edema, No Gallop, No JVD, No Murmur Gastrointestinal: Normal Bowel Sounds, No Organomegaly, No Pulsatile Mass, Non Tender Back: Normal Inspection, No CVA Tenderness, No Vertebral Tenderness Extremity: Normal Capillary Refill, Normal Inspection, Normal Range of Motion, Non Tender Neurologic/Psychiatric: Alert, Oriented x3, No Motor/Sensory Deficits, Normal Mood/Affect, embedded systems developer II-XII Norm as Tested Skin: Normal Color, Warm/Dry (ANITA CHERRY) Progress/Results/Core Measures Suspected Sepsis SIRS Temperature: Pulse: 100 Respiratory Rate: 16 Laboratory Tests 12/04/22 18:27: White Blood Count 11.5H Blood Pressure 111 /80 Mean: 90 Laboratory Tests 12/04/22 18:27: Creatinine 1.45H, Platelet Count 325, Total Bilirubin 0.5 12/04/22 21:21: Creatinine 0.95 (ANITA CHERRY) Results/Orders Lab Results Laboratory Tests Test 12/04/22 18:13 12/04/22 18:20 12/04/22 18:27 12/04/22 21:00 Range/Units Glucometer 503 *H 159 H 70-110 MG/DL Urine Color YELLOW Urine Clarity CLEAR Urine pH 5.5 5-9 Urine Specific [place] <=1.005 1.016-1.022 Urine Protein NEGATIVE NEGATIVE Urine Glucose (UA) 3+ H NEGATIVE Urine Ketones 1+ H NEGATIVE Urine Nitrite NEGATIVE NEGATIVE Urine Bilirubin NEGATIVE NEGATIVE Urine Urobilinogen 0.2 < = 1.0 MG/DL Urine Leukocyte Esterase NEGATIVE NEGATIVE Urine RBC (Auto) NEGATIVE NEGATIVE Urine RBC NONE /HPF Urine WBC NONE /HPF Urine Squamous Epithelial Cells RARE /HPF Urine Crystals NONE /LPF Urine Bacteria NEGATIVE /HPF Urine Casts NONE /LPF Urine Mucus NEGATIVE /LPF Urine Culture Indicated NO White Blood Count 11.5 H 4.3-11.0 10^3/uL Red Blood Count 5.32 4.30-5.52 10^6/uL Hemoglobin 16.6 13.3-17.7 g/dL Hematocrit 46 40-54 % Mean Corpuscular Volume 86 80-99 fL Mean Corpuscular Hemoglobin 31 25-34 pg Mean Corpuscular Hemoglobin Concent 36 32-36 g/dL Red Cell Distribution Width 11.3 10.0-14.5 % Platelet Count 325 130-400 10^3/uL Mean Platelet Volume 8.8 L 9.0-12.2 fL Immature Granulocyte % (Auto) 1 % Neutrophils (%) (Auto) 67 42-75 % Lymphocytes (%) (Auto) 25 12-44 % Monocytes (%) (Auto) 5 0-12 % Eosinophils (%) (Auto) 3 0-10 % Basophils (%) (Auto) 0 0-10 % Neutrophils # (Auto) 7.7 1.8-7.8 10^3/uL Lymphocytes # (Auto) 2.9 1.0-4.0 10^3/uL Monocytes # (Auto) 0.5 0.0-1.0 10^3/uL Eosinophils # (Auto) 0.3 0.0-0.3 10^3/uL Basophils # (Auto) 0.0 0.0-0.1 10^3/uL Immature Granulocyte # (Auto) 0.1 0.0-0.1 10^3/uL Sodium Level 132 L 135-145 MMOL/L Potassium Level 4.7 3.6-5.0 MMOL/L Chloride Level 97 L 98-107 MMOL/L Carbon Dioxide Level 22 21-32 MMOL/L Anion Gap 13 5-14 MMOL/L Blood Urea Nitrogen 19 H 7-18 MG/DL Creatinine 1.45 H 0.60-1.30 MG/DL Estimat Glomerular Filtration Rate 67 BUN/Creatinine Ratio 13 Glucose Level 578 *H 70-105 MG/DL Calcium Level 9.8 8.5-10.1 MG/DL Corrected Calcium 9.6 8.5-10.1 MG/DL Total Bilirubin 0.5 0.1-1.0 MG/DL Aspartate Amino Transf (AST/SGOT) 12 5-34 U/L Alanine Aminotransferase (ALT/SGPT) 17 0-55 U/L Alkaline Phosphatase 73 40-136 U/L Total Protein 7.3 6.4-8.2 GM/DL Albumin 4.2 3.2-4.5 GM/DL Lipase 35 8-78 U/L Beta-Hydroxybutyrate (Chem panel) 1.07 H 0.00-0.27 MMOL/L Test 12/04/22 21:21 Range/Units Sodium Level 140 135-145 MMOL/L Potassium Level 3.6 3.6-5.0 MMOL/L Chloride Level 109 H 98-107 MMOL/L Carbon Dioxide Level 20 L 21-32 MMOL/L Anion Gap 11 5-14 MMOL/L Blood Urea Nitrogen 17 7-18 MG/DL Creatinine 0.95 0.60-1.30 MG/DL Estimat Glomerular Filtration Rate 112 BUN/Creatinine Ratio 18 Glucose Level 145 H 70-105 MG/DL Calcium Level 8.3 L 8.5-10.1 MG/DL Beta-Hydroxybutyrate (Chem panel) 0.52 H 0.00-0.27 MMOL/L (GULSHANVENU K DO) Vital Signs/I&O 12/04/22 12/04/22 18:02 21:48 Temp 36.8 Pulse 100 88 Resp 16 18 B/P (MAP) 111/80 (90) 124/78 Pulse Ox 99 O2 Delivery Room Air (GULSHANRANA K DO) Vital Signs/I&O Capillary Refill : (ANITA CHERRY) Blood Pressure Mean: 90 Point of Care Testing Finger Stick Blood Glucose: 159 Blood Glucose Action Taken: DR NOTIFIED (ANITA CHERRY) Departure Communication (PCP) Patient history of type 2 diabetes. Currently on insulin. Reviewed previous ER visits, H&P, lab testing. Patient with vomiting diarrhea blurry vision and lightheadedness. Patient had a elevated glucometer read at [facility] that read high. Patient roxanne to the ED via POV. Blood sugar read over 578. CBC, CMP, beta hydroxybutyrate, urinalysis. Patient heart rate 100. Afebrile. Sodium 132, chloride 97, creatinine 1.45, GFR 67. Beta hydroxybutyrate 1.07. Urinalysis positive for ketones and sugar. Patient anion gap 13. Concerning for mild early DKA. Received 2 L of fluid, 10 units of regular insulin with a blood sugar near 143. Rechecked a chemistry which showed improvement of his kidney function, electrolytes and beta hydroxybutyrate. Patient does have insulin at home which I recommend continue taking. Continue monitoring sugar. If any worsening symptoms return back to ED. Currently asymptomatic. (ANITA CHERRY) Impression Primary Impression: Diabetic ketoacidosis Disposition: 01 HOME, SELF-CARE Condition: Stable Departure-Patient Inst. Decision time for Depature: 21:43 (ANITA CHERRY) Referrals: NO,LOCAL PHYSICIAN (PCP/Family) Primary Care Physician Patient Instructions: Diabetic Ketoacidosis Add. Discharge Instructions: Continue taking your insulin and monitor your symptoms. Recommend hydration. If any worsening symptoms return back to ED All discharge instructions reviewed with patient and/or family. Voiced understanding. Work/School Note: Work Release Form Date Seen in the Emergency Department: Dec 04, 2022 Return to Work: Dec 06, 2022 ATTENDING PHYSICIAN NOTE: I WAS PHYSICALLY PRESENT ER PHYSICIAN, BUT I WAS NOT INVOLVED IN ANY DECISION MAKING OR ANY CARE OF THIS PATIENT AND I AM NOT COLLABORATING PHYSICIAN. (VENU GAFFNEY DO) ANITA CHERRY Dec 04, 2022 21:43 VENU GAFFNEY DO Dec 07, 2022 01:22
[2022-12-04 21:48] VITALS: BP 124/78
== END 2022-12-04 21:48 | disposition home or self-care (01) ==
LOC: EDUNIT# 17:21 → ER 17:23
DX: E11.10 Type 2 diabetes mellitus with ketoacidosis without coma (principal); Z79.4 Long term (current) use of insulin; Z28.310 Unvaccinated for COVID-19
CPT/HCPCS: 36415; 80048; 80053; 81000; 82010; 82947; 83690; 85025

== ENCOUNTER 2022-12-27 08:30 | Emergency (ER) | payer OTHER, MEDICAID ==
[~2022-12-27] VITALS: Ht 175.3 cm; Wt 81.6 kg
[2022-12-27] MEDS ORDERED: NS IV 1000 ML 1,000 ML IV STA (08:51)
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
[2022-12-27] MEDS ORDERED: TETANUS,DIPTH,PERTUSS P/F (BOOSTRIX) 0.5 ML VIAL IM ONE (09:00)
[2022-12-27 09:04] LABS: BILIRUBIN,URINE NEGATIVE (NEGATIVE); CLARITY,URINE CLEAR; COLOR,URINE YELLOW; GLUCOSE, URINE (UA) 3+ (NEGATIVE); KETONES,URINE TRACE (NEGATIVE); LEUKOCYTE ESTERASE ,URINE NEGATIVE (NEGATIVE); NITRITE,URINE NEGATIVE (NEGATIVE); PH,URINE 5.5 (5-9); PROTEIN,URINE NEGATIVE (NEGATIVE)
[2022-12-27] MEDS ORDERED: inSUlin (REGULAR) HUMAN 1 UNIT/0.01 ML (CHARGE PER UNIT) IV STA (09:07)
[2022-12-27 09:12] LABS: BACTERIA,URINE NEGATIVE /HPF; RBC,URINE RARE /HPF; SQUAMOUS EPITHELIAL CELL,UR RARE /HPF
[2022-12-27 09:13] LABS: BASOPHILS % (AUTO) 0 % (0-10); EOSINOPHILS # (AUTO) 0.4 10^3/uL (0.0-0.3); EOSINOPHILS % (AUTO) 3 % (0-10); HEMATOCRIT 47 % (40-54); HEMOGLOBIN 16.9 g/dL (13.3-17.7); LYMPHOCYTES # (AUTO) 1.4 10^3/uL (1.0-4.0); LYMPHOCYTES % (AUTO) 10 % (12-44); MEAN CORPUSCULAR HEMOGLOBIN 31 pg (25-34); MEAN CORPUSCULAR HGB CONC 36 g/dL (32-36); MEAN CORPUSCULAR VOLUME 87 fL (80-99); MEAN PLATELET VOLUME 8.9 fL (9.0-12.2); MONOCYTES # (AUTO) 0.5 10^3/uL (0.0-1.0); MONOCYTES % (AUTO) 3 % (0-12); NEUTROPHILS # (AUTO) 11.2 10^3/uL (1.8-7.8); NEUTROPHILS % (AUTO) 82 % (42-75); PLATELET COUNT 354 10^3/uL (130-400); WHITE BLOOD COUNT 13.7 10^3/uL (4.3-11.0)
[2022-12-27 09:22] LABS: ALBUMIN 4.6 GM/DL (3.2-4.5)
[2022-12-27 09:23] LABS: CHLORIDE 101 MMOL/L (98-107); POTASSIUM 4.4 MMOL/L (3.6-5.0); SODIUM 133 MMOL/L (135-145)
[2022-12-27 09:24] LABS: CALCIUM 9.9 MG/DL (8.5-10.1)
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
--- NOTE | 2022-12-27 09:24 | Diagnostic Imaging Report ---
INDICATION: Right leg pain. FINDINGS: AP and lateral views of the right femur show no fracture or dislocation. IMPRESSION: Unremarkable right femur. Dictated by: Dictated on workstation # [id number]
[2022-12-27 09:26] LABS: CARBON DIOXIDE 20 MMOL/L (21-32)
[2022-12-27 09:27] LABS: BILIRUBIN,TOTAL 0.7 MG/DL (0.1-1.0)
[2022-12-27 09:28] LABS: ALKALINE PHOSPHATASE 85 U/L (40-136)
[2022-12-27 09:29] LABS: CREATININE SERUM 1.25 MG/DL (0.60-1.30); GFR ESTIMATED 80
[2022-12-27 09:30] LABS: BUN/CREATININE RATIO 17
[2022-12-27 09:31] LABS: ALANINE AMINOTRANSFERASE 30 U/L (0-55); GLUCOSE 480 MG/DL (70-105)
[2022-12-27] MEDS ORDERED: KETOROLAC 15 MG/ML VIAL IVP ONE (10:45)
[2022-12-27 10:58] VITALS: BP 129/94
== END 2022-12-27 10:58 | disposition home or self-care (01) ==
LOC: EDUNIT# 08:30 → ER 08:32
DX: S09.90XA Unspecified injury of head, initial encounter (principal); S70.11XA Contusion of right thigh, initial encounter; S00.83XA Contusion of other part of head, initial encounter; S40.812A Abrasion of left upper arm, initial encounter; S40.811A Abrasion of right upper arm, initial encounter; S80.212A Abrasion, left knee, initial encounter; S80.211A Abrasion, right knee, initial encounter; S70.212A Abrasion, left hip, initial encounter; E11.9 Type 2 diabetes mellitus without complications; Z79.4 Long term (current) use of insulin; Z28.310 Unvaccinated for COVID-19; Z23 Encounter for immunization; V03.99XA Pedestrian with other conveyance injured in collision with car, pick-up truck or van, unspecified whether traffic or nontraffic accident, initial encounter; Y92.410 Unspecified street and highway as the place of occurrence of the external cause; Y93.01 Activity, walking, marching and hiking
CPT/HCPCS: 36415; 71045; 73552; 80053; 81000; 82947; 85025; 90715

== ENCOUNTER 2023-06-19 17:35 | Observation (INO) | payer MEDICAID ==
[~2023-06-19] VITALS: Ht 175 cm; Wt 81.9 kg
[2023-06-19 17:58] LABS: BASOPHILS # (AUTO) 0.1 10^3/uL (0.0-0.1); BASOPHILS % (AUTO) 1 % (0-10); EOSINOPHILS % (AUTO) 0 % (0-10); HEMATOCRIT 50 % (40-54); HEMOGLOBIN 17.8 g/dL (13.3-17.7); LYMPHOCYTES # (AUTO) 1.5 10^3/uL (1.0-4.0); LYMPHOCYTES % (AUTO) 13 % (12-44); MEAN CORPUSCULAR HEMOGLOBIN 31 pg (25-34); MEAN CORPUSCULAR HGB CONC 36 g/dL (32-36); MEAN CORPUSCULAR VOLUME 87 fL (80-99); MEAN PLATELET VOLUME 8.2 fL (9.0-12.2); MONOCYTES # (AUTO) 0.3 10^3/uL (0.0-1.0); MONOCYTES % (AUTO) 3 % (0-12); NEUTROPHILS # (AUTO) 8.8 10^3/uL (1.8-7.8); NEUTROPHILS % (AUTO) 82 % (42-75); PLATELET COUNT 376 10^3/uL (130-400); WHITE BLOOD COUNT 10.8 10^3/uL (4.3-11.0)
[2023-06-19] MEDS ORDERED: NS IV 1000 ML 1,000 ML IV SCH ×4 (18:00→21:15)
[2023-06-19] MEDS ORDERED: ONDANSETRON INJECTION 4 MG/2 ML (SDV) IVP ONE ×2 (18:00→19:15)
--- NOTE | 2023-06-19 18:01 | ED GI ---
General Chief Complaint: Glucose Problems Stated Complaint: VOMITING/HEADACHE Nursing Triage Note: PT STATES HE IS IN DKA, HEADACHE, VOMITING SINCE LAST NIGHT Source of Information: Patient Exam Limitations: No Limitations History of Present Illness Date Seen by Provider: Jun 19, 2023 Time Seen by Provider: 17:42 Initial Comments 28-year-old male presents to the ER with reports of vomiting starting last night. Also complains of a frontal headache. He reports throbbing in the back of his head when he gets up. Patient believes that he is in diabetic ketoacidosis. Blood sugar was found to be 379 here in the ER. Reports that he takes 20 units of Levemir twice a day, denies missing any doses. He does not take any fast acting insulin. Denies fever, chest pain, shortness of air, abdominal pain, diarrhea, dysuria. Allergies and Home Medications Allergies Coded Allergies: No Known Drug Allergies (Unverified , 07/17/22) Patient Home Medication List Home Medication List Reviewed: Yes Insulin Aspart (Novolog Flexpen) 100 Unit/Ml (3 Ml) Solution, 5 UNITS SQ AC Prescribed by: CELESTE MILLIGAN on 07/19/22 1149 Insulin Detemir (Levemir Flextouch) 100 Unit/Ml (3 Ml) Insuln.pen, 20 UNIT SQ HS Prescribed by: CELESTE MILLIGAN on 07/19/22 1149 Ondansetron (Ondansetron Odt) 4 Mg Tab.rapdis, 4 MG SL Q8H PRN for NAUSEA/VOMITING Prescribed by: BRAD BENSON on 08/19/22 0350 Ondansetron (Ondansetron Odt) 4 Mg Tab.rapdis, 4 MG SL Q4H PRN for NAUSEA/VOMITING Prescribed by: Barbara Arellano on 10/24/22 1415 Review of Systems Review of Systems Constitutional: see HPI Past Kgqonmt-Arypul-Jlzvrn Hx Immunizations Up To Date First/Initial COVID19 Vaccinat: na Second COVID19 Vaccination Rich: na Third COVID19 Vaccination Date: na Past Medical History Surgery/Hospitalization HX: IDDM, ASPERGERS SYNDROME, ABCESS UNDER LEFT ARM Surgeries: No (None reported) Respiratory: No Cardiac: No Neurological: No Reproductive Disorders: No Genitourinary: No Gastrointestinal: No Musculoskeletal: No Endocrine: Yes Diabetes, Insulin dep HEENT: No Cancer: No Psychosocial: Yes (Asperger syndrome) Family Medical History Diabetes Physical Exam Vital Signs Vital Signs - First Documented 06/19/23 17:42 Temp 37.4 Pulse 107 Resp 22 B/P (MAP) 122/95 (104) Pulse Ox 99 O2 Delivery Room Air Capillary Refill : Less Than 3 Seconds Height/Weight/BMI Height: '" Weight: lbs. oz. kg; 25.00 BMI Method: General Appearance: WD/WN, no apparent distress Neck: supple, normal inspection Respiratory: lungs clear, normal breath sounds, no respiratory distress, no accessory muscle use Cardiovascular: regular rate, rhythm Gastrointestinal: normal bowel sounds Extremities: normal range of motion, normal inspection Neurologic/Psychiatric: alert, normal mood/affect Skin: normal color, warm/dry Progress/Results/Core Measures Results/Orders Lab Results Laboratory Tests Test 06/19/23 17:50 06/19/23 17:53 06/19/23 18:15 06/19/23 19:53 Range/Units Venous Blood pH 7.53 H 7.31-7.41 Venous Blood Partial Pressure CO2 30 L 40-52 MMHG Venous Blood HCO3 25 22-28 MMOL/L Sodium Level 134 L 135-145 MMOL/L Potassium Level 4.6 3.6-5.0 MMOL/L Chloride Level 96 L 98-107 MMOL/L Carbon Dioxide Level 18 L 21-32 MMOL/L Anion Gap 20 H 5-14 MMOL/L Blood Urea Nitrogen 20 H 7-18 MG/DL Creatinine 1.35 H 0.60-1.30 MG/DL Estimat Glomerular Filtration Rate 73 BUN/Creatinine Ratio 15 Glucose Level 373 H 70-105 MG/DL Glucometer 379 H 274 H 70-110 MG/DL Calcium Level 10.0 8.5-10.1 MG/DL Corrected Calcium 8.5-10.1 MG/DL Phosphorus Level 3.0 2.3-4.7 MG/DL Total Bilirubin 0.8 0.1-1.0 MG/DL Aspartate Amino Transf (AST/SGOT) 10 5-34 U/L Alanine Aminotransferase (ALT/SGPT) 15 0-55 U/L Alkaline Phosphatase 68 40-136 U/L Total Protein 8.5 H 6.4-8.2 GM/DL Albumin 4.6 H 3.2-4.5 GM/DL Beta-Hydroxybutyrate (Chem panel) 3.41 H 0.00-0.27 MMOL/L White Blood Count 10.8 4.3-11.0 10^3/uL Red Blood Count 5.79 H 4.30-5.52 10^6/uL Hemoglobin 17.8 H 13.3-17.7 g/dL Hematocrit 50 40-54 % Mean Corpuscular Volume 87 80-99 fL Mean Corpuscular Hemoglobin 31 25-34 pg Mean Corpuscular Hemoglobin Concent 36 32-36 g/dL Red Cell Distribution Width 11.4 10.0-14.5 % Platelet Count 376 130-400 10^3/uL Mean Platelet Volume 8.2 L 9.0-12.2 fL Immature Granulocyte % (Auto) 2 % Neutrophils (%) (Auto) 82 H 42-75 % Lymphocytes (%) (Auto) 13 12-44 % Monocytes (%) (Auto) 3 0-12 % Eosinophils (%) (Auto) 0 0-10 % Basophils (%) (Auto) 1 0-10 % Neutrophils # (Auto) 8.8 H 1.8-7.8 10^3/uL Lymphocytes # (Auto) 1.5 1.0-4.0 10^3/uL Monocytes # (Auto) 0.3 0.0-1.0 10^3/uL Eosinophils # (Auto) 0.0 0.0-0.3 10^3/uL Basophils # (Auto) 0.1 0.0-0.1 10^3/uL Immature Granulocyte # (Auto) 0.2 H 0.0-0.1 10^3/uL Magnesium Level 1.9 1.6-2.4 MG/DL My Orders Orders - BARBARA GERONIMO APRN Ua Culture If Indicated (06/19/23 17:47) Accucheck Stat ONCE (06/19/23 17:47) Comprehensive Metabolic Panel (06/19/23 17:51) Ed Iv/Invasive Line Start (06/19/23 17:51) Cbc And Automated Diff (06/19/23 17:51) Venous Blood Gas (06/19/23 17:51) Beta Hydroxybutyrate (06/19/23 17:51) Phosphorus (06/19/23 17:51) Ns Iv 1000 Ml (Ns Iv 1000 Ml) (06/19/23 18:00) Ondansetron Injection (Ondansetron Inj (06/19/23 18:00) Magnesium (06/19/23 18:01) Ns Iv 1000 Ml (Ns Iv 1000 Ml) (06/19/23 19:00) Ondansetron Injection (Ondansetron Inj (06/19/23 19:15) Accucheck Stat ONCE (06/19/23 19:43) Ns Iv 1000 Ml (Ns Iv 1000 Ml) (06/19/23 20:00) Ketorolac Injection (Ketorolac Injection (06/19/23 20:00) Promethazine Injection (Promethazine I (06/19/23 20:15) Ed Admission (Communication) (06/19/23 20:08) Medications Given in ED Current Medications Medications Dose Ordered Sig/Bianca Route Start Time Stop Time Status Last Admin Dose Admin Ketorolac Tromethamine 30 mg ONCE ONCE IVP 06/19/23 20:00 06/19/23 20:01 DC 06/19/23 20:19 30 MG Ondansetron HCl 4 mg ONCE ONCE IVP 06/19/23 18:00 06/19/23 18:01 DC 06/19/23 17:59 4 MG Ondansetron HCl 4 mg ONCE ONCE IVP 06/19/23 19:15 06/19/23 19:16 DC 06/19/23 19:15 4 MG Promethazine HCl 25 mg ONCE ONCE IVP 06/19/23 20:15 06/19/23 20:16 DC 06/19/23 20:19 25 MG Vital Signs/I&O 06/19/23 06/19/23 17:42 20:19 Temp 37.4 36.6 Pulse 107 Resp 22 B/P (MAP) 122/95 (104) Pulse Ox 99 O2 Delivery Room Air Blood Pressure Mean: 104 FSBG Bedside Testing Finger Stick Blood Glucose: 379 Blood Glucose Action Taken: PROVIDER INFORMED Progress Progress Note : Progress Note Patient seen and evaluated, sitting in bed, mild distress. Based on exam and symptoms, work-up initiated including CBC, CMP, magnesium, phosphorus, beta hydroxybutyrate, venous blood gas, UA. IV fluids and Zofran ordered. 2004 Labs reviewed. CBC shows elevated RBC 5.79, elevated hematocrit 17.8. CMP shows slight decrease sodium 134, decreased chloride 96, slightly decreased CO2 18, elevated anion gap 20, BUN elevated 20, creatinine elevated 1.35, GFR 73, glucose 373. Beta hydroxybutyrate elevated 3.41. Magnesium and phosphorus normal. Venous pH elevated 7.53, venous PCO2 30. Patient has not yet been able to provide a urine sample after 2 L of fluids. Patient states that he was feeling better and that his nausea had improved, so attempted p.o. challenge. Patient states that he did not even drink the water and began vomiting. Due to mild DKA and uncontrolled vomiting, patient will require admission. Plan of care discussed with patient. Patient agrees to admission. I called and spoke with Dr. Woodard, [facility] hospitalist, she agrees to admit patient. She would like patient to go to the ICU on observation. Departure Communication (Admissions) Time/Spoke to Admitting Phy: 20:05 Dr. Woodard, [facility] hospitalist, see progress note. Impression Primary Impression: DKA (diabetic ketoacidosis) Disposition: ADMITTED INPATIENT Condition: Stable Admissions Decision to Admit Reason: Admit from ER (General) Decision to Admit/Date: Jun 19, 2023 Time/Decision to Admit Time: 20:05 Departure-Patient Inst. Referrals: [facility] (PCP/Family) Primary Care Physician BARBARA GERONIMO APRN Jun 19, 2023 18:01
[2023-06-19 18:16] LABS: ALBUMIN 4.6 GM/DL (3.2-4.5); CHLORIDE 96 MMOL/L (98-107); POTASSIUM 4.6 MMOL/L (3.6-5.0); SODIUM 134 MMOL/L (135-145)
[2023-06-19 18:18] LABS: GLUCOSE 373 MG/DL (70-105); TOTAL PROTEIN 8.5 GM/DL (6.4-8.2)
[2023-06-19 18:20] LABS: BILIRUBIN,TOTAL 0.8 MG/DL (0.1-1.0); CARBON DIOXIDE 18 MMOL/L (21-32)
[2023-06-19 18:22] LABS: ALKALINE PHOSPHATASE 68 U/L (40-136); CREATININE SERUM 1.35 MG/DL (0.60-1.30); GFR ESTIMATED 73
[2023-06-19 18:23] LABS: BUN/CREATININE RATIO 15
[2023-06-19 18:25] LABS: ALANINE AMINOTRANSFERASE 15 U/L (0-55)
[2023-06-19] MEDS ORDERED: KETOROLAC INJ 30 MG/ML VIAL IVP ONE (20:00)
[2023-06-19] MEDS ORDERED: PROMETHAZINE INJ 25 MG/ML VIAL IVP ONE (20:15)
[2023-06-19 20:56] LABS: CLARITY,URINE CLEAR; COLOR,URINE YELLOW; PH,URINE 5.5 (5-9); PROTEIN,URINE NEGATIVE (NEGATIVE)
[2023-06-19 20:57] LABS: AMORPHOUS SEDIMENT,UR RARE AMOR URATES /LPF; BACTERIA,URINE TRACE /HPF; BILIRUBIN,URINE 1+ (NEGATIVE); GLUCOSE, URINE (UA) 2+ (NEGATIVE); KETONES,URINE 4+ (NEGATIVE); LEUKOCYTE ESTERASE ,URINE NEGATIVE (NEGATIVE); NITRITE,URINE NEGATIVE (NEGATIVE); RBC,URINE 0-2 /HPF; WBC,URINE 0-2 /HPF
[2023-06-19] MEDS ORDERED: MILK OF MAGNESIA 400 MG/5 ML 30 ML UDC PO PRN (21:15)
[2023-06-19] MEDS ORDERED: MELATONIN 3 MG TABLET PO PRN (21:15)
[2023-06-19] MEDS ORDERED: ANTACID SUSPENSION 30 ML UDC PO PRN (21:15)
[2023-06-19] MEDS ORDERED: LACTULOSE SYRUP 10GM/15ML 30ML UDC PO PRN (21:15)
[2023-06-19] MEDS ORDERED: CALCIUM CARBONATE 500 MG CHEW TABLET PO PRN (21:15)
[2023-06-19] MEDS ORDERED: BISACODYL 10 MG SUPPOSITORY PR PRN (21:15)
[2023-06-19] MEDS ORDERED: HYDROmorphone INJECTION 2 MG/ML VIAL IV PRN (21:15)
[2023-06-19] MEDS ORDERED: ONDANSETRON INJECTION 4 MG/2 ML (SDV) IV PRN (21:15)
[2023-06-19] MEDS ORDERED: POTASSIUM CL 10MEQ/50ML IVPB 50 ML IV SCH (21:15)
[2023-06-19] MEDS ORDERED: D5 1/2 NS 1,000 ML IV 1,000 ML IV SCH (21:15)
[2023-06-19] MEDS ORDERED: ONDANSETRON 4 MG ORAL DISSOLVE TABLET PO PRN (21:15)
[2023-06-19] MEDS ORDERED: diphenhydrAMINE INJ 50 MG/ML VIAL IVP PRN (21:15)
[2023-06-19] MEDS ORDERED: ACETAMINOPHEN 325 MG TABLET PO PRN (21:15)
[2023-06-19] MEDS ORDERED: NS IV 500 ML 500 ML IV PRN (21:15)
[2023-06-19] MEDS ORDERED: diphenhydrAMINE 25 MG TABLET PO PRN (21:15)
[2023-06-19] MEDS ORDERED: LORazepam 0.5 MG TABLET PO PRN (21:15)
[2023-06-19] MEDS ORDERED: oxyCODONE IMMEDIATE RELEASE 5 MG TABLET PO PRN (21:15)
[2023-06-19] MEDS: POTASSIUM CL 10MEQ/50ML IVPB 50 ML IV SCH ×2 (21:30→23:26)
[2023-06-19] MEDS ORDERED: POTASSIUM CL 10MEQ/50ML IVPB 50 ML IV ONE (21:33)
[2023-06-19] MEDS ORDERED: 1/2 NS IV SOLUTION 1000 ML 1,000 ML IV ONE (21:33)
[2023-06-19] MEDS: 1/2 NS IV SOLUTION 1000 ML 1,000 ML IV SCH (21:46)
[2023-06-19 21:47] VITALS: BP 114/65
[2023-06-19] MEDS ORDERED: ENOXAPARIN 40 MG/0.4 ML SYRINGE SC SCH (22:30)
--- NOTE | 2023-06-19 23:22 | Tele-ICU Progress Note ---
Progress Note 28M with IDDM admitted with DKA. Denies missing any doses of insulin. States that he takes Levemir 20u BID, no short acting (novolog is on home med list). Found to have b-hydroxy of 3.4, gap 20, gluc 373, bicarb 18. - DKA ---insulin gtt in place ---serial lab monitioring ---transition to PA when gap closed ---no precipitating cause. UA negative. Check CXR for incidental pna as precitpitating cause Patient assessed via real time audiovisual communication system CCT 8 min Focused Exam Height, Weight, BMI Height: '" Weight: lbs. oz. kg; 26.74 BMI Method: ESTEFANY WINSTON MD Jun 19, 2023 23:22
[2023-06-19 23:53] LABS: POTASSIUM 4.2 MMOL/L (3.6-5.0)
[2023-06-19 23:55] LABS: CALCIUM 8.3 MG/DL (8.5-10.1)
[2023-06-19 23:59] LABS: CREATININE SERUM 1.05 MG/DL (0.60-1.30)
[2023-06-20] MEDS: POTASSIUM CL 10MEQ/50ML IVPB 50 ML IV SCH ×3 (01:49→06:02)
[2023-06-20] MEDS: 1/2 NS IV SOLUTION 1000 ML 1,000 ML IV SCH ×3 (01:57→09:20)
[2023-06-20 02:15] LABS: POTASSIUM 4.1 MMOL/L (3.6-5.0)
[2023-06-20 02:16] LABS: CALCIUM 8.4 MG/DL (8.5-10.1)
[2023-06-20 02:21] LABS: CREATININE SERUM 0.88 MG/DL (0.60-1.30)
[2023-06-20] MEDS ORDERED: MAGNESIUM 1 GM/100 ML IVPB 100 ML IV SCH (06:00)
[2023-06-20] MEDS ORDERED: POTASSIUM CHLORIDE 20 MEQ TABLET PO SCH (06:00)
[2023-06-20] MEDS ORDERED: POTASSIUM CL 10MEQ/50ML IVPB 50 ML IV SCH (06:00)
[2023-06-20 06:13] LABS: BASOPHILS % (AUTO) 1 % (0-10); EOSINOPHILS # (AUTO) 0.1 10^3/uL (0.0-0.3); EOSINOPHILS % (AUTO) 1 % (0-10); HEMATOCRIT 40 % (40-54); HEMOGLOBIN 14.4 g/dL (13.3-17.7); LYMPHOCYTES # (AUTO) 2.7 10^3/uL (1.0-4.0); LYMPHOCYTES % (AUTO) 32 % (12-44); MEAN CORPUSCULAR HEMOGLOBIN 31 pg (25-34); MEAN CORPUSCULAR HGB CONC 36 g/dL (32-36); MEAN CORPUSCULAR VOLUME 87 fL (80-99); MEAN PLATELET VOLUME 8.2 fL (9.0-12.2); MONOCYTES # (AUTO) 0.6 10^3/uL (0.0-1.0); MONOCYTES % (AUTO) 7 % (0-12); NEUTROPHILS # (AUTO) 4.8 10^3/uL (1.8-7.8); NEUTROPHILS % (AUTO) 57 % (42-75); PLATELET COUNT 268 10^3/uL (130-400); WHITE BLOOD COUNT 8.4 10^3/uL (4.3-11.0)
[2023-06-20 06:24] LABS: CALCIUM 8.3 MG/DL (8.5-10.1); CREATININE SERUM 0.9 MG/DL (0.60-1.30)
[2023-06-20] MEDS ORDERED: FLU QUADRIvalent (6 months+) 60 mcg/0.5 ml 2023-2024 (FLUARIX) IM ONE (06:45)
--- NOTE | 2023-06-20 07:02 | Diagnostic Imaging Report ---
INDICATION: Infectious disease workup. Compared 12/27/2022. FINDINGS: The lungs clear. No failure, effusion or pneumothorax. IMPRESSION: No acute appearing abnormality. Dictated by: Dictated on workstation # [id number]
--- NOTE | 2023-06-20 08:39 | Tele-ICU Progress Note ---
Subjective Date Seen by a Provider: Jun 20, 2023 Time Seen by a Provider: 08:38 Subjective/Events-last exam (Tele-ICU Physician , Progress Note ) Service provided via interactive audio and video telecommunications E-CARE system to a patient admitted to ICU bed in [facility]. Patient is seen today due to persistent need of ICU care Available chart/ vitals / labs / Images reviewed Video assessment done using teleICU camera, rest of exam as per RN Discussed with RN Events overnight : Afebrile hemodynamically stable Respiratory - ra 28M with IDDM admitted with DKA. Denies missing any doses of insulin. States that he takes Levemir 20u BID, no short acting (novolog is on home med list). Found to have b-hydroxy of 3.4, gap 20, gluc 373, bicarb 18. - DKA ---insulin gtt in place- to stop this am and resume levemir ---no precipitating cause. UA negative. Check CXR for incidental pna as precitpitating cause VTE Prophylaxis: ze Stress Ulcer Prophylaxis: na Plans in collaboration with bedside consultants and IM MDs. Discussed with RN to reach out if any questions or concerns Case and care daily discussed on multidisciplinary rounds ( RN, PharmD, Fact Checker , Respiratory Therapy, rice farmworker ) A total of 15 minutes of critical care time was devoted to this patient today, required to treat and/or prevent further deterioration of critical care condition ( as above ) . I am remotely monitoring this patient from another state. I am unable to do the bedside exam, and history/physical and pertinent information is taken from other notes in the computer and bedside staff. Sepsis Event Evaluation Height, Weight, BMI Height: '" Weight: lbs. oz. kg; 26.74 BMI Method: Exam Exam Patient acknowledged, consented, and participated in this virtual visit which was conducted using real time audio/video Vital Signs Date Time Temp Pulse Resp B/P (MAP) Pulse Ox O2 Delivery O2 Flow Rate FiO2 06/20/23 07:45 36.7 06/20/23 06:00 91 18 128/79 (95) 97 Room Air 06/20/23 05:00 96 17 120/76 (88) 97 Room Air 06/20/23 04:00 92 18 126/78 (95) 97 Room Air 06/20/23 04:00 97 Room Air 06/20/23 03:45 37.2 06/20/23 03:00 98 14 140/86 (103) 97 Room Air 06/20/23 02:00 94 35 132/99 (108) 96 Room Air 06/20/23 01:00 82 06/20/23 01:00 82 16 121/77 (89) 96 Room Air 06/20/23 00:33 36.8 06/20/23 00:00 85 17 119/73 (89) 96 Room Air 06/20/23 00:00 96 Room Air 06/19/23 23:59 96 Room Air 06/19/23 23:00 92 18 109/58 (75) 96 Room Air 06/19/23 22:45 96 18 109/63 (77) 96 Room Air 06/19/23 22:30 98 16 112/66 (80) 96 Room Air 06/19/23 22:15 96 18 117/71 (84) 96 Room Air 06/19/23 22:00 100 14 119/86 (96) 99 Room Air 06/19/23 21:47 36.6 90 97 21 06/19/23 21:45 104 14 111/72 (84) 95 Room Air 06/19/23 21:41 109 10 114/69 (88) 98 Room Air 06/19/23 21:36 97 06/19/23 21:33 99 22 119/77 (91) 98 Room Air 06/19/23 21:30 91 7 122/72 (89) 98 Room Air 06/19/23 21:30 Room Air 06/19/23 21:27 90 20 114/65 97 Room Air 06/19/23 21:23 37.1 112 16 124/70 (88) 98 Room Air 06/19/23 20:19 36.6 06/19/23 17:42 37.4 107 22 122/95 (104) 99 Room Air I & O 06/20/23 06:59 Intake Total 4700 ml Output Total 400 ml Balance 4300 ml Height & Weight Height: '" Weight: lbs. oz. kg; 26.74 BMI Method: General Appearance: Other Capillary Refill: Less Than 3 Seconds Gastrointestinal: normal bowel sounds Results Lab Laboratory Tests 06/19/23 17:50 06/19/23 17:53 06/19/23 23:34 06/20/23 02:00 06/20/23 06:00 Assessment/Plan Assessment/Plan 1 JOSEFINA MENA MD Jun 20, 2023 08:39
[2023-06-20] MEDS ORDERED: inSUlin DETERMIR 1 UNIT/0.01 ML (CHARGE PER UNIT) SQ SCH (09:00)
[2023-06-20] MEDS ORDERED: SENNOSIDES 8.6 MG TABLET PO SCH (09:00)
[2023-06-20] MEDS ORDERED: DOCUSATE SODIUM 100 MG CAPSULE PO SCH (09:00)
--- NOTE | 2023-06-20 09:33 | History & Physical-Hospitalist ---
RIKI LEE MD, RESIDENT 06/20/23 0933: History of Present Illness HPI/Chief Complaint CC: DKA Patient is a 28-year-old male with past medical history of diabetes who states that he was having vomiting that started last night. He notes that he was vomi ting up brown, acidic substances. He was also having a headache during this time. He states last time this occurred, he was in ketoacidosis and thus he presented to the ED for further evaluation. He states that he takes 20 units of Levemir twice daily and notes that he may have missed 1 or 2 doses recently but otherwise has been compliant. He does not take any fast acting insulin. In the ED his blood sugar was found to be elevated. He was noted to have an elevated anion gap, low bicarb, 4+ ketones in his urine and elevated beta hydroxybutyrate. Blood gas was notable for alkalosis however given these findings as well as patient's symptoms, he was deemed to be in diabetic ketoacidosis. He was started on an insulin drip and transferred to the floor. This a.m., patient is feeling well and has no concerns today. He has been taken off of the insulin drip and has been started on subcutaneous insulin. He is feeling better compared to when he first came in and is no longer having any vomiting. States he is tolerating oral intake and has been walking around okay. Is hopeful that he can be discharged today. Source: patient Exam Limitations: no limitations Date Seen 06/20/23 Time Seen by a Provider: 08:00 Attending Physician [facility] PCP Admitting Physician: Sarah Woodard DO Attending Physician: Sarah Woodard DO Referring Physician Date of Admission Jun 19, 2023 at 21:07 Home Medications & Allergies Home Medications Reviewed patient Home Medication Reconciliation performed by pharmacy medication reconciliations predictive maintenance technician and/or nursing. Patients Allergies have been reviewed. Allergies Allergies Coded Allergies No Known Drug Allergies (Voygmpimbb81/28/22) Past Qsyqmng-Bbkhnu-Qegcil Hx Patient Social History Tobacco Use?: Yes Tobacco type used: Cigarettes Smoking Status: Current Everyday Smoker Use of E-Cig and/or Vaping dev: No Substance use?: No Alcohol Use?: No Pt feels they are or have been: No Immunizations Up To Date First/Initial COVID19 Vaccinat: NO Second COVID19 Vaccination Rich: na Tetanus Booster (TDap): Unknown Current Status Advance Directives: No Communicates: Verbally Primary Language: Ukrainian Preferred Spoken Language: Ukrainian Is interpretation needed?: No Sensory deficits: Vision impairment Implanted or Applied Medical D: None Past Medical History Diabetes, Insulin dep Family Medical History Diabetes Review of Systems Constitutional: dizziness EENTM: No no symptoms reported Respiratory: No cough, No dyspnea on exertion, No short of breath Cardiovascular: No chest pain, No edema, No palpitations Gastrointestinal: No abdominal pain, No constipation, No diarrhea; nausea, vomiting Genitourinary: No dysuria Musculoskeletal: No back pain Skin: No no symptoms reported Psychiatric/Neurological: Denies No Symptoms Reported Physical Exam Physical Exam Vital Signs Vital Signs - First Documented 06/19/23 06/19/23 17:42 21:47 Temp 37.4 Pulse 107 Resp 22 B/P (MAP) 122/95 (104) Pulse Ox 99 O2 Delivery Room Air FiO2 21 Capillary Refill : Less Than 3 Seconds Height, Weight, BMI Height: '" Weight: lbs. oz. kg; 26.74 BMI Method: General Appearance: No Apparent Distress HEENT: PERRL/EOMI Neck: Full Range of Motion, Normal Inspection Respiratory: Chest Non Tender, Lungs Clear, Normal Breath Sounds, No Accessory Muscle Use, No Respiratory Distress Cardiovascular: Regular Rate, Rhythm, No Edema, No Murmur Gastrointestinal: Normal Bowel Sounds, Non Tender, Soft Neurologic/Psychiatric: Alert, Oriented x3 Skin: Normal Color, Warm/Dry Results Results/Procedures Labs Laboratory Tests 06/19/23 17:50 06/19/23 17:53 06/19/23 23:34 06/20/23 02:00 06/20/23 06:00 Patient resulted labs reviewed. Imaging: Reviewed Imaging Films, Reviewed Imaging Report Imaging Chest x-ray (06/19/2023): IMPRESSION: No acute appearing abnormality. Assessment/Plan Admission Diagnosis Diabetic ketoacidosis Admission Status: Observation Diagnosis/Problems Diagnosis/Problems (1) Diabetic ketoacidosis Status: Resolved Assessment & Plan: Patient presented with diabetic ketoacidosis. Noted to have elevated beta hydroxybutyrate, 4+ ketones and anion gap. He was maintained on insulin drip with resolution of these other findings. Plan: Continue 20 units subcutaneous long-acting insulin twice daily, this is patient's home regimen Continue sliding scale insulin as needed Anticipate discharge later today if patient is tolerating. Resolution Date/Time: 06/20/23 @ 09:33 (2) Nausea & vomiting Status: Resolved Assessment & Plan: Nausea and vomiting has resolved since improvement in DKA. Plan: Monitor for nausea vomiting Antiemetics on board if needed Resolution Date/Time: 06/20/23 @ 09:32 (3) Hyperglycemia Status: Acute Assessment & Plan: See above SARAH WOODARD DO 06/20/231950: History of Present Illness HPI/Chief Complaint Chief complaint: DKA HPI: This is a 28-year-old male with a history of type 1 diabetes who presented to the ER with nausea and vomiting found to be in DKA placed on insulin drip and now he is doing well transition to subcu insulin and will discharge home. Source: patient Exam Limitations: no limitations Past Vpuhkwg-Tsthds-Mnkhsz Hx Patient Social History Marrital Status: single Employed/Student: employed Past Medical History Diabetes, Insulin dep Review of Systems Constitutional: see HPI Gastrointestinal: nausea Physical Exam Physical Exam General Appearance: No Apparent Distress, Chronically ill Respiratory: Lungs Clear, No Accessory Muscle Use Cardiovascular: Regular Rate, Rhythm Assessment/Plan Admission Diagnosis Assessment: DKA Nausea and vomiting Dehydration Acute kidney injury Plan: Transition insulin drip to subcu insulin Discharge home I personally performed the leger portions of the visit, discussed case with resident and concur with resident documentation of history, physical exam, assessment and treatment plan unless otherwise noted. Admission Status: Observation RIKI LEE MD, RESIDENT Jun 20, 2023 09:33 SARAH WOODARD DO Jun 20, 2023 19:51
--- NOTE | 2023-06-20 09:38 | Discharge Summary ---
RIKI LEE MD, RESIDENT 06/20/23 0938: Discharge Summary Hospital Course Was the Problem List Reviewed?: Yes Problems/Dx: (1) Diabetic ketoacidosis Status: Resolved Assessment & Plan: Patient presented with diabetic ketoacidosis. Noted to have elevated beta hydroxybutyrate, 4+ ketones and anion gap. He was maintained on insulin drip with resolution of these other findings. Gap is closed, sugars are well maintained, no evidence of low bicarb on CMP this AM. Plan: To discharge patient home on his home regimen of insulin Has follow-up with Mary Alice Kwong at [facility] Will establish care with a PCP at [facility] (2) Nausea & vomiting Status: Resolved Assessment & Plan: Nausea and vomiting has resolved since improvement in DKA. (3) Hyperglycemia Status: Acute Assessment & Plan: See above Hospital Course Date of Admission: Jun 19, 2023 at 21:07 Admission Diagnosis : Family Physician/Provider: [facility] Date of Discharge: 06/20/23 Discharge Diagnosis: [Diabetic ketoacidosis] Hospital Course: [Patient is a 28-year-old male with a past medical history of diabetes who presented in diabetic ketoacidosis. He states that he was having persistent vomiting that was consistent with prior episodes of ketoacidosis. He thus presented to the ED for further evaluation. He states he was compliant with his home insulin regimen however did miss a couple doses recently. He was noted to have an elevated anion gap, 4+ ketones and elevated beta hydroxybutyrate as well as low bicarb on CMP thus consistent with DKA. He was thus admitted to the ICU on an insulin drip for management of his DKA. This morning, his gap had closed, bicarb was normal and thus he was taken off of the insulin drip. We restarted his home regimen of 20 units insulin detemir twice daily which managed his sugars well. He will be discharged home on his home regimen with close follow-up with personal development educator at [facility], Mary Alice Kwong and will plan to establish care with the PCP at [facility].] Labs and Pending Lab Test: Laboratory Tests 06/19/23 17:50: Venous Blood pH 7.53H, Venous Blood Partial Pressure CO2 30L, Venous Blood HCO3 25, Sodium Level 134L, Potassium Level 4.6, Chloride Level 96L, Carbon Dioxide Level 18L, Anion Gap 20H, Blood Urea Nitrogen 20H, Creatinine 1.35H, Estimat Glomerular Filtration Rate 73, BUN/Creatinine Ratio 15, Glucose Level 373H, Glucometer 379H, Calcium Level 10.0, Corrected Calcium , Phosphorus Level 3.0, Total Bilirubin 0.8, Aspartate Amino Transf (AST/SGOT) 10, Alanine Aminotransferase (ALT/SGPT) 15, Alkaline Phosphatase 68, Total Protein 8.5H, Albumin 4.6H, Beta-Hydroxybutyrate (Chem panel) 3.41H 06/19/23 17:53: White Blood Count 10.8, Red Blood Count 5.79H, Hemoglobin 17.8H, Hematocrit 50, Mean Corpuscular Volume 87, Mean Corpuscular Hemoglobin 31, Mean Corpuscular Hemoglobin Concent 36, Red Cell Distribution Width 11.4, Platelet Count 376, Mean Platelet Volume 8.2L, Immature Granulocyte % (Auto) 2, Neutrophils (%) (Auto) 82H, Lymphocytes (%) (Auto) 13, Monocytes (%) (Auto) 3, Eosinophils (%) (Auto) 0, Basophils (%) (Auto) 1, Neutrophils # (Auto) 8.8H, Lymphocytes # (Auto) 1.5, Monocytes # (Auto) 0.3, Eosinophils # (Auto) 0.0, Basophils # (Auto) 0.1, Immature Granulocyte # (Auto) 0.2H 06/19/23 18:15: Magnesium Level 1.9 06/19/23 19:53: Glucometer 274H 06/19/23 20:35: Urine Color YELLOW, Urine Clarity CLEAR, Urine pH 5.5, Urine Specific Ward 1.025H, Urine Protein NEGATIVE, Urine Glucose (UA) 2+H, Urine Ketones 4+H, Urine Nitrite NEGATIVE, Urine Bilirubin 1+H, Urine Urobilinogen 0.2, Urine Leukocyte Esterase NEGATIVE, Urine RBC (Auto) NEGATIVE, Urine RBC 0-2, Urine WBC 0-2, Urine Squamous Epithelial Cells NONE, Urine Crystals PRESENTH, Urine Amorphous Sediment RARE [place] URATESH, Urine Bacteria TRACE, Urine Casts NONE, Urine Mucus SMALLH, Urine Culture Indicated NO 06/19/23 21:25: Glucometer 262H 06/19/23 22:51: Glucometer 297H 06/19/23 23:30: Glucometer 252H 06/19/23 23:34: Sodium Level 137, Potassium Level 4.2, Chloride Level 106, Carbon Dioxide Level 19L, Anion Gap 12, Blood Urea Nitrogen 19H, Creatinine 1.05, Estimat Glomerular Filtration Rate 99, BUN/Creatinine Ratio 18, Glucose Level 293H, Calcium Level 8.3L, Beta-Hydroxybutyrate (Chem panel) 0.72H 06/20/23 00:31: Glucometer 266H 06/20/23 01:44: Glucometer 192H 06/20/23 02:00: Sodium Level 137, Potassium Level 4.1, Chloride Level 107, Carbon Dioxide Level 19L, Anion Gap 11, Blood Urea Nitrogen 19H, Creatinine 0.88, Estimat Glomerular Filtration Rate 119, BUN/Creatinine Ratio 22, Glucose Level 199H, Calcium Level 8.4L 06/20/23 02:32: Glucometer 157H 06/20/23 03:01: Glucometer 161H 06/20/23 03:31: Glucometer 172H 06/20/23 04:31: Glucometer 191H 06/20/23 05:03: Glucometer 195H 06/20/23 05:44: Glucometer 198H 06/20/23 06:00: White Blood Count 8.4, Red Blood Count 4.59, Hemoglobin 14.4, Hematocrit 40, Mean Corpuscular Volume 87, Mean Corpuscular Hemoglobin 31, Mean Corpuscular Hemoglobin Concent 36, Red Cell Distribution Width 11.4, Platelet Count 268, Mean Platelet Volume 8.2L, Immature Granulocyte % (Auto) 2, Neutrophils (%) (Auto) 57, Lymphocytes (%) (Auto) 32, Monocytes (%) (Auto) 7, Eosinophils (%) (Auto) 1, Basophils (%) (Auto) 1, Neutrophils # (Auto) 4.8, Lymphocytes # (Auto) 2.7, Monocytes # (Auto) 0.6, Eosinophils # (Auto) 0.1, Basophils # (Auto) 0.0, Immature Granulocyte # (Auto) 0.2H, Sodium Level 135, Potassium Level 4.0, Chloride Level 106, Carbon Dioxide Level 21, Anion Gap 8, Blood Urea Nitrogen 17, Creatinine 0.90, Estimat Glomerular Filtration Rate 119, BUN/Creatinine Ratio 19, Glucose Level 215H, Calcium Level 8.3L 06/20/23 06:42: Glucometer 165H 06/20/23 07:35: Glucometer 199H 06/20/23 07:47: Glucometer 164H 06/20/23 08:31: Glucometer 228H Home Meds Active Ondansetron Odt (Ondansetron) 4 Mg Tab.rapdis 4 Mg SL Q4H PRN Ondansetron Odt (Ondansetron) 4 Mg Tab.rapdis 4 Mg SL Q8H PRN Novolog Flexpen (Insulin Aspart) 100 Unit/Ml (3 Ml) Solution 5 Units SQ AC Levemir Flextouch (Insulin Detemir) 100 Unit/Ml (3 Ml) Insuln.pen 20 Unit SQ HS Assessment/Pt Instructions Please see electronic discharge instructions given to patient. Discharge Instructions Discharge Diet: No Restrictions Activity as Tolerated: Yes Discharge Physical Examination Vital Signs Vital Signs Date Time Temp Pulse Resp B/P (MAP) Pulse Ox O2 Delivery O2 Flow Rate FiO2 06/20/23 08:00 98 Room Air 06/20/23 07:45 36.7 06/20/23 06:00 91 18 06/19/23 21:47 21 General Appearance: No Apparent Distress HEENT: PERRL/EOMI Respiratory: Chest Non Tender, Lungs Clear, Normal Breath Sounds, No Accessory Muscle Use, No Respiratory Distress Cardiovascular: Regular Rate, Rhythm, No Edema, No Murmur Gastrointestinal: Normal Bowel Sounds, Non Tender, Soft Skin: Normal Color, Warm/Dry Neurologic/Psychiatric: Alert, Oriented x3 Allergies: Coded Allergies: No Known Drug Allergies (Unverified , 07/17/22) Copy Copies To 1: RIKI LEE MD, RESIDENT; Mary Alice Kwong Discharge Summary Date of Admission Jun 19, 2023 at 21:07 Date of Discharge Admission Diagnosis Diabetic ketoacidosis Discharge Diagnosis (1) Diabetic ketoacidosis Status: Resolved Assessment & Plan: Patient presented with diabetic ketoacidosis. Noted to have elevated beta hydroxybutyrate, 4+ ketones and anion gap. He was maintained on insulin drip with resolution of these other findings. Plan: Continue 20 units subcutaneous long-acting insulin twice daily, this is patient's home regimen Continue sliding scale insulin as needed Anticipate discharge later today if patient is tolerating. (2) Nausea & vomiting Status: Resolved Assessment & Plan: Nausea and vomiting has resolved since improvement in DKA. Plan: Monitor for nausea vomiting Antiemetics on board if needed (3) Hyperglycemia Status: Acute Assessment & Plan: See above ANGELA LUO DO 06/20/231950: Discharge Summary Hospital Course Was the Problem List Reviewed?: Yes Discharge Planning: <30 minutes discharge planning Discharge Instructions Discharge Diet: ADA Diet Discharge Physical Examination Allergies: Coded Allergies: No Known Drug Allergies (Unverified , 07/17/22) Copy Copies To 1: RIKI LEE MD, RESIDENT; RIKI Cruz MD, RESIDENT Jun 20, 2023 09:38 ANGELA LUO DO Jun 20, 2023 19:51
[2023-06-20] MEDS ORDERED: INSU100I88 SQ (10:58)
[2023-06-20] MEDS ORDERED: inSUlin ASPART 1 UNIT/0.01 ML (PER UNIT) SC SCH (11:00)
== END 2023-06-20 13:10 | disposition home or self-care (01) ==
LOC: EDUNIT# 17:35 → ER 17:38 → UNDOADMOB 21:07 → ICU 21:07 → UNDODISOB 06-20 13:10
PROVIDERS: ADMIT Internal Medicine; ATTEND Internal Medicine
DX: E11.10 Type 2 diabetes mellitus with ketoacidosis without coma (principal); R11.2 Nausea with vomiting, unspecified; N17.9 Acute kidney failure, unspecified; E11.65 Type 2 diabetes mellitus with hyperglycemia; F17.210 Nicotine dependence, cigarettes, uncomplicated; Z28.310 Unvaccinated for COVID-19; Z79.4 Long term (current) use of insulin
CPT/HCPCS: 71045; 80048 ×2; 80053; 81000; 82010; 82805; 82947 ×2; 83735; 84100; 85025 ×2; 87081; 96361; 96366 ×2; 96372 ×2; 96374; 96375 ×2; 96376; 99284; G0378; 36415